=== PATIENT | female | born 1985 | race Two or more races ===

== ENCOUNTER 2022-04-29 11:32 | Inpatient (IN) | payer SELFPAY ==
--- OUTSIDE RECORDS SUMMARY | 2022-04-29 11:35 | XMS REPORT | Continuity of Care Document ---
:1985 Author Organization [facility] Address [address] [place] [address] Care Team Providers Name Role Phone Unavailable Unavailable Unavailable Problems Condition Condition Condition Status Onset Resolution Last Treating Co mments Source Name Details Category Date Date Treatment Clinician Date Uterine Uterine Problem Active [facility] leiomyoma Leiomyoma 2 da 00:00: Medical 00 Group Urinary Urinary Problem Active [place] tract Tract 2 da infectious Infectious 00:00: Me dical disease Disease 00 Group Menorrhagi Menorrhagi Problem Active [facility] a a 2 da 00:00: Medical 00 Group Allergies, Adverse Reactions, Alerts Allergy Allergy Status Severity Reaction(s) Onset Inactive Treating Comm ents Source Name Type Date Date Clinician Amoxicil Allergy Active Hives [place] krystina to [facility] Social History Smoking Status Start Date Stop Date Source Current Every Day Smoker [facility] Medications Ordered Filled Start Stop Current Ordering Indication Dosage Frequency Signature Comments Components Source Medication Medication Date Date Medication? Clinician (SIG) Name Name levothyroxi levothyroxi No levothyrox [facility] Cipro 500 Cipro 500 No 1 Q12H Cipro 500 [facility] mg tablet mg tablet mg tablet da Take 1 Take 1 Take 1 Medical tablet tablet tablet Group every 12 every 12 every 12 hours by hours by hours by oral route. oral route. oral route. ibuprofen ibuprofen No 1 TID ibuprofen [facility] 800 mg 800 mg 800 mg da tablet Take tablet Take tablet Medical 1 tablet 3 1 tablet 3 Take 1 G roup times a day times a day tablet 3 by oral by oral times a route. route. day by oral route. Vital Signs Vital Name Observation Time Observation Value Comments Source BP Diastolic 2018-11-19 00:00:00 74 mm[Hg] [facility] BP Systolic 2018-11-19 00:00:00 107 mm[Hg] [facility] Body Weight 2018-11-19 00:00:00 187 [lb_av] [facility] Procedures Procedure Date / Time Performed Performing Clinician [facility] e Delivery 2009-04-15 00:00:00 [facility] Plan of Care Planned Activity Planned Date Details Comments Source Diagnostic Test 2018-11-19 urinalysis, [facility] Pending 00:00:00 dipstick [code = Group urinalysis, dipstick] Diagnostic Test 2018-11-19 test, [facility] Pending 00:00:00 urine [code = Group test, urine] Diagnostic Test 2018-11-19 culture, urine [facility] Pending 00:00:00 [code = culture, Group urine] Encounters Start End Encounter Admission Attending Care Care Encounter Source Date/Time Date/Time Type Type Clinicians Facility Department ID 2018-11-19 2018-11-19 [facility] [place] - [id number] [place] 00:00:00 00:00:00 [facility] vanessa Causey NP: [facility] - [address] [address] , Ph. [phone] Results This patient has no known results.
[2022-04-29 12:33] LABS: Urine Blood Trace-intact (Negative); Urine Glucose Negative (Negative); Urine Protein Negative (Negative); Urine Specific Gravity 1.015 (1.005-1.030)
[2022-04-29 12:39] LABS: Absolute Lymphocytes (CBC) 1.8 K/uL (0.7-4.9); Hematocrit 24.2 % (36.0-45.0); Lymphocytes % 37.1 % (15.3-44.8); MCV 90.9 fL (80-100); MPV 6.4 fL (7.6-11.3); RBC Red Blood Cell Count 2.66 M/uL (3.86-4.86)
[2022-04-29 12:44] LABS: Urine Specific Gravity/Preg 1.015 (1.005-1.030)
[2022-04-29] MEDS ORDERED: FAMOTIDINE 20 MG/2 ML VIAL IV ONE (12:48)
[2022-04-29] MEDS ORDERED: ONDANSETRON 4 MG/2 ML VIAL ONE (12:48)
[2022-04-29] MEDS ORDERED: NA CHLORIDE 0.9% 1,000 ML ONE (12:48)
--- NOTE | 2022-04-29 12:52 | RAD REPORT ---
EXAM DESCRIPTION: US - Abdomen Exam Limited - 04/29/2022 12:42 pm CLINICAL HISTORY: abdominal pain COMPARISON: No comparisons FINDINGS: The gallbladder demonstrates no gallstones. No pericholecystic fluid or gallbladder wall t hickening. The common bile duct is normal measuring 4 mm. The liver demonstrates no findings of intrahepatic biliary dilatation. IMPRESSION: Unremarkable examination.
[2022-04-29 12:57] LABS: Albumin 3.4 g/dL (3.4-5.0); Bilirubin Total 0.3 mg/dL (0.2-1.0); Potassium 3.5 mmol/L (3.5-5.1); Protein, Total 7.6 g/dL (6.4-8.2); Troponin High Sensitivity 3.9 pg/mL (<58.9)
--- NOTE | 2022-04-29 14:03 | RAD REPORT ---
EXAM DESCRIPTION: CTAbdomen Pelvis W Contrast - 04/29/2022 1:44 pm CLINICAL HISTORY: Abdominal pain. Abdominal pain, acute, nonlocalized COMPARISON: Abdomen Exam Limited dated 04/29/2022 TECHNIQUE: Biphasic CT imaging of the abdomen and pelvis was performed with 100 ml non-ionic IV cont rast. All CT scans are performed using dose optimization technique as appropriate and may include automated exposure control or mA/KV adjustment according to patient size. FINDINGS: The lung bases are clear. The liver, spleen, pancreas, adrenal glands and kidneys are within normal limits. No bowel obstruction, free air, free fluid or abscess. The appendix is not well visualized. Signific ant retained stool throughout the colon. No evidence of significant lymphadenopathy. No suspicious bony findings. Trace pelvic free fluid. IMPRESSION: No acute intra-abdominal or pelvic finding. Moderate stool is present throughout the colon.
[2022-04-29] MEDS ORDERED: NA CHLORIDE 0.9% 500 ML ONE (14:36)
--- NOTE | 2022-04-29 16:13 | ER ---
Nurse's Notes [facility] Name: Fito Sosa Age: 36 yrs Sex: Female : 1985 Arrival Date: 04/29/2022 Time: 11:53 Bed 20 Private MD: Diagnosis: UTI/ Urinary tract infection, site not specified;Syncope;Anemia, unspecified Presentation: 04/29 12:07 Chief complaint: Patient states: chest pain for a couple of days. Coronavirus screen: [facility] Vaccine status: Patient reports receiving the 2nd dose of the covid vaccine. At this time, the client does not indicate any symptoms associated with coronavirus-19. Ebola Screen: Patient negative for fever greater than or equal to 101.5 degrees Fahrenheit, and additional compatible Ebola Virus Disease symptoms. Initial Sepsis Screen: Does the patient meet any 2 criteria? No. Patient's initial sepsis screen is negative. Does the patient have a suspected source of infection? No. Patient's initial sepsis screen is negative. Risk Assessment: Do you want to hurt yourself or someone else? Patient reports no desire to harm self or others. Onset of symptoms was April 28, 2022. 12:07 Method Of Arrival: EMS: [facility] 12:07 Acuity: RACHANA 3 [facility] Triage Assessment: 12:08 General: Appears in no apparent distress. Behavior is calm, cooperative, appropriate [facility] for age. Pain: Complains of pain in chest Pain currently is 7 out of 10 on a pain scale. GRIPS: 12:08 LMP N/A - control method [facility] Historical: - Allergies: 12:08 Amoxicillin; [facility] - Home Meds: 12:08 levothyroxine 25 mcg tab 1 tab once daily for hypothyroidism [Active]; [facility] - PMHx: 12:08 Congestive heart failure; THYROID CA; Hypothyroidism; Hypertensive disorder; [facility] - Immunization history:: Adult Immunizations up to date. - Social history:: Smoking status: Patient denies any tobacco usage or history of. - Family history:: not pertinent. - Hospitalizations: : No recent hospitalization is reported. Screenin:12 Abuse screen: Denies threats or abuse. Nutritional screening: No deficits noted. [facility] Tuberculosis screening: No symptoms or risk factors identified. Fall Risk None identified. Assessment: 12:12 Reassessment: No changes from previously documented assessment. [facility] Vital Signs: 12:07 BP 102 / 86; Pulse 62; Resp 18; Temp 98.2(TE); Pulse Ox 100% on R/A; Weight 92.99 kg; 1 Height 5 ft. 6 in. (167.64 cm); Pain 7/10; 13:20 BP 101 / 82; Pulse 62; Resp 18; Pulse Ox 100% on R/A; bh1 14:01 BP 96 / 78; Pulse 57; Resp 18; Pulse Ox 100% on R/A; bh1 14:39 BP 121 / 94; Pulse 50; Resp 18; Pulse Ox 99% on R/A; bh1 15:12 BP 113 / 91; Pulse 52; Resp 18; Pulse Ox 100% on R/A; bh1 16:04 BP 120 / 85; Pulse 72; Resp 18; Pulse Ox 100% on R/A; bh1 16:44 BP 98 / 70; Pulse 64; Resp 18; Pulse Ox 100% on R/A; 1 17:13 BP 102 / 87; Pulse 65; Resp 20; Pulse Ox 100% on R/A; bh1 19:03 BP 101 / 68; Pulse 89; Resp 18; Pulse Ox 100% on R/A; 1 12:07 Body Mass Index 33.09 (92.99 kg, 167.64 cm) [facility] ED Course: 11:53 Patient arrived in ED. aa5 11:56 Mike Mcknight MD is Attending Physician. rn 12:00 Kathleen Boyd, ANGELINE is Primary Nurse. [facility] 12:08 Triage completed. [facility] 12:08 Arm band placed on left wrist. EKG completed in triage. Results shown to MD. [facility] 12:12 No apparent distress. Resting quietly. Awaiting lab results, Awaiting radiology results.[facility] 12:12 Patient has correct armband on for positive identification. 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 Pulse 1 ox on. NIBP on. Door closed. Noise minimized. Warm blanket given. Pillow given. Head of bed elevated. 12:12 No provider procedures requiring assistance completed. Inserted saline lock: 20 gauge bh1 in right antecubital area, using aseptic technique. Blood collected. 12:34 CBC with Diff Sent. 1 12:34 CMP Sent. 1 12:34 Lipase Sent. [facility] 12:34 SARS-COV-2 RT PCR (Document "Date of Onset" if Symptomatic) Sent. 1 12:34 Troponin High Sensitivity Sent. bh1 12:44 Abdomen Limited US In Process Unspecified. EDMS 13:20 No apparent distress. Resting quietly. Awaiting lab results, Awaiting radiology results.1 13:25 EKG done, by ED staff. tm3 13:[address] via stretcher. bh1 13:46 CT Abd/Pelvis - IV Contrast Only In Process Unspecified. EDMS 14:39 No apparent distress. Resting quietly. Awaiting lab results, Awaiting radiology bh1 results. Awaiting ED provider evaluation, Awaiting re-evaluation by ER provider. 15:11 Assisted to bathroom. bh1 15:12 No apparent distress. Resting quietly. Awaiting ED provider evaluation. bh1 15:24 Diet: Patient given a regular meal tray. Patient given juice. Patient given water. bh1 Tolerated well. 16:04 No apparent distress. Awaiting disposition. 1 16:11 Calin Bhagat MD is Hospitalizing Provider. rn 16:44 No apparent distress. Resting quietly. Awaiting bed assignment. bh1 17:13 No apparent distress. Resting quietly. Awaiting bed assignment. 1 19:04 Report given to MARILYNN. 1 19:09 Primary Nurse role handed off by Kathleen Boyd, ANGELINE 3 19:09 Marilynn Young, RN is Primary Nurse. kd3 21:10 Patient admitted, IV remains in place. kd3 Administered Medications: 12:50 Drug: NS 0.9% 1000 ml Route: IV; Rate: 1 bolus; Site: right antecubital; [facility] 13:34 Follow up: IV Status: Infusion continued; IV Intake: 1000ml [facility] 12:50 Drug: Pepcid (famotidine) 20 mg Route: IVP; Site: right antecubital; 1 13:33 Follow up: Response: No adverse reaction [facility] 12:50 Drug: Zofran (Ondansetron) 4 mg Route: IVP; Site: right antecubital; 1 13:33 Follow up: Response: No adverse reaction [facility] 14:25 Drug: NS 0.9% 500 ml Route: IV; Rate: bolus; Site: right antecubital; 1 15:11 Follow up: IV Status: Completed infusion; IV Intake: 500ml [facility] 19:31 Drug: Rocephin (cefTRIAXone) 1 grams Route: IV; Rate: calculated rate; Site: right 3 antecubital; 19:31 Follow up: IV Status: Completed infusion kd3 21:10 Follow up: Response: No adverse reaction 3 19:31 Drug: HYDROcodone-acetaminophen 5 mg-325 mg 1 tabs Route: PO; 3 21:10 Follow up: Response: No adverse reaction [facility] Medication: 12:12 VIS not applicable for this client. [facility] Point of Care Testing: Guaiac: 14:08 Stool Guaiac: Negative; Stool Hemoccult Control: Pass; recruitment intern: 13:34 IV: 1000ml; Total: 1000ml. 1 15:11 IV: 500ml; Total: 1500ml. [facility] Outcome: 16:12 Decision to Hospitalize by Provider. rn 21:09 Admitted to Med/surg kd3 21:09 Condition: stable 21:09 Discharge instructions given to patient, Instructed on the need for admit, Demonstrated understanding of instructions, follow-up care. 21:10 Patient left the ED. 3 Signatures: Dispatcher [employer] EDMS Carson Loi tm3 Mike Mcknight MD MD rn Calderon, Audri RN RN [email or web address] Marilynn Young RN RN kd3 Kathleen Boyd RN RN 1 Corrections: (The following items were deleted from the chart) 12:12 12:08 LMP N/A - Post-menopause [facility]1
--- NOTE | 2022-04-29 16:13 | EDPHYS ---
Physician Documentation [facility] Name: Fito Sosa Age: 36 yrs Sex: Female : 1985 Arrival Date: 04/29/2022 Time: 11:53 Bed 20 Private MD: ED Physician Mike Mcknight HPI: 04/29 16:04 This 36 yrs old Female presents to ER via EMS with complaints of syncope, vomiting. rn 16:05 The patient presents to the emergency department with nausea, vomiting, abdominal pain, rn of the epigastric area. Onset: The symptoms/episode began/occurred today. Possible causes: unknown. The symptoms are aggravated by nothing. The symptoms are alleviated by nothing. Associated signs and symptoms: Pertinent positives: abdominal pain, nausea, vomiting, Pertinent negatives: fever, GI bleeding. Severity of symptoms: At their worst the symptoms were moderate in the emergency department the symptoms are unchanged. The patient has not experienced similar symptoms in the past. The patient has not recently seen a physician. Pt reports nausea/vomiting, lightheaded, dizzy. States passed out 2-3 times when walking and standing up. Denies blood in emesis. No blood in stool or dark stool. No fever. No sick contacts. Reports chest pain with exertion. From [place], here visiting, abandoned by boyfriend, no where to go. . 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 - Social history:: Smoking status: Patient denies any tobacco usage or history of. - Family history:: not pertinent. - Hospitalizations: : No recent hospitalization is reported. ROS: 16:05 Constitutional: Negative for fever, chills, and weight loss, Eyes: Negative for injury, rn pain, redness, and discharge, ENT: Negative for injury, pain, and discharge, Neck: Negative for injury, pain, and swelling, Cardiovascular: Negative for palpitations, and edema, Respiratory: Negative for shortness of breath, cough, wheezing, and pleuritic chest pain, Abdomen/GI: Negative for constipation Back: Negative for injury and pain, : Negative for injury, bleeding, discharge, and swelling, MS/Extremity: Negative for injury and deformity, Skin: Negative for injury, rash, and discoloration, Neuro: Negative for headache, numbness, tingling, and seizure. Exam: 13:48 ECG was reviewed by the Attending Physician. rn 16:05 Constitutional: This is a well developed, well nourished patient who is awake, alert, rn and in no acute distress. Head/Face: Normocephalic, atraumatic. Eyes: Periorbital areas with no swelling, redness, or edema. ENT: dry MM Cardiovascular: Regular rate and rhythm. No pulse deficits. Respiratory: No increased work of breathing, no retractions or nasal flaring. Abdomen/GI: soft, mild epigastric tenderness, no rebound Skin: Warm, dry MS/ Extremity: Pulses equal, no cyanosis. Neuro: Awake and alert, GCS 15 Vital Signs: 12:07 BP 102 / 86; Pulse 62; Resp 18; Temp 98.2(TE); Pulse Ox 100% on R/A; Weight 92.99 kg; 1 Height 5 ft. 6 in. (167.64 cm); Pain 7/10; 13:20 BP 101 / 82; Pulse 62; Resp 18; Pulse Ox 100% on R/A; bh1 14:01 BP 96 / 78; Pulse 57; Resp 18; Pulse Ox 100% on R/A; bh1 14:39 BP 121 / 94; Pulse 50; Resp 18; Pulse Ox 99% on R/A; bh1 15:12 BP 113 / 91; Pulse 52; Resp 18; Pulse Ox 100% on R/A; bh1 16:04 BP 120 / 85; Pulse 72; Resp 18; Pulse Ox 100% on R/A; bh1 16:44 BP 98 / 70; Pulse 64; Resp 18; Pulse Ox 100% on R/A; bh1 17:13 BP 102 / 87; Pulse 65; Resp 20; Pulse Ox 100% on R/A; bh1 19:03 BP 101 / 68; Pulse 89; Resp 18; Pulse Ox 100% on R/A; bh1 12:07 Body Mass Index 33.09 (92.99 kg, 167.64 cm) [facility] MDM: 11:56 Patient medically screened. rn 14:08 ED course: Pt with hemoglobin 8.0, pt reports hx of anemia, has had blood transfusions rn in past, has been scoped and told "don't know where blood loss is from". Reports heavy menses. Denies hematemesis. . 16:05 Differential diagnosis: Nonspecific abd pain, gastritis, cholecystitis, pancreatitis, rn appendicitis, diverticulitis, viral gastroenteritis, gastroenteritis. Data reviewed: vital signs, nurses notes, lab test result(s), radiologic studies, CT scan, and as a result, I will admit patient. Counseling: I had a detailed discussion with the patient and/or guardian regarding: the historical points, exam findings, and any diagnostic results supporting the discharge/admit diagnosis, lab results, radiology results, the need for further work-up and treatment in the hospital. 16:11 Admission orders: after a detailed discussion of the patient's condition and case, the software development intern orders are written by me. 04/29 12:07 Order name: CBC with Diff; Complete Time: 13:13 rn 04/29 12:07 Order name: CMP; Complete Time: 13:13 rn 04/29 12:07 Order name: Lipase; Complete Time: 13:13 rn 04/29 12:07 Order name: Troponin High Sensitivity; Complete Time: 13:13 rn 04/29 12:07 Order name: SARS-COV-2 RT PCR (Document "Date of Onset" if Symptomatic); Complete Time: rn 15:34 04/29 12:33 Order name: Urine --Ancillary (enter results); Complete Time: 13:13 bd 04/29 12:07 Order name: Abdomen Limited US; Complete Time: 13:13 rn 04/29 12:07 Order name: CT Abd/Pelvis - IV Contrast Only; Complete Time: 14:04 rn 04/29 12:33 Order name: Urine Dipstick-Ancillary; Complete Time: 13:13 EDMS 04/29 19:07 Order name: BNP la1 04/29 19:08 Order name: Urine Microscopic Only la1 04/29 12:07 Order name: IV Saline Lock; Complete Time: 12:14 rn 04/29 12:07 Order name: Labs collected and sent; Complete Time: 12:34 rn 04/29 12:07 Order name: Urine Dipstick-Ancillary (obtain specimen); Complete Time: 12:34 rn 04/29 12:07 Order name: Urine Test (obtain specimen); Complete Time: 12:34 rn 04/29 12:07 Order name: EKG; Complete Time: 12:08 rn 04/29 12:07 Order name: EKG - Nurse/Tech; Complete Time: 13:33 rn EC:48 Rate is 56 beats/min. Rhythm is regular. QRS Devon is Normal. ID interval is normal. QRS rn interval is normal. QT interval is normal. No Q waves. T waves are Normal. No ST changes noted. Clinical impression: Sinus bradycardia. Interpreted by me. Reviewed by me. Administered Medications: 12:50 Drug: NS 0.9% 1000 ml Route: IV; Rate: 1 bolus; Site: right antecubital; 1 13:34 Follow up: IV Status: Infusion continued; IV Intake: 1000ml bh1 12:50 Drug: Pepcid (famotidine) 20 mg Route: IVP; Site: right antecubital; bh1 13:33 Follow up: Response: No adverse reaction 1 12:50 Drug: Zofran (Ondansetron) 4 mg Route: IVP; Site: right antecubital; bh1 13:33 Follow up: Response: No adverse reaction 1 14:25 Drug: NS 0.9% 500 ml Route: IV; Rate: bolus; Site: right antecubital; bh1 15:11 Follow up: IV Status: Completed infusion; IV Intake: 500ml 1 19:31 Drug: Rocephin (cefTRIAXone) 1 grams Route: IV; Rate: calculated rate; Site: right kd3 antecubital; 19:31 Follow up: IV Status: Completed infusion kd3 21:10 Follow up: Response: No adverse reaction kd3 19:31 Drug: HYDROcodone-acetaminophen 5 mg-325 mg 1 tabs Route: PO; kd3 21:10 Follow up: Response: No adverse reaction kd3 Point of Care Testing: Guaiac: 14:08 Stool Guaiac: Negative; Stool Hemoccult Control: Pass; rn Disposition Summary: 04/29/22 16:12 Hospitalization Ordered Hospitalization Status: Observation rn Provider: Calin Bhagat rn Location: Telemetry/MedSur (observation) rn Condition: Stable rn Problem: new rn Symptoms: have improved rn Bed/Room Type: Standard rn Room Assignment: 207(04/29/22 19:31) cg Diagnosis - UTI/ Urinary tract infection, site not specified rn - Syncope rn - Anemia, unspecified immigration attorney Instructions: - Discharge Summary Sheet aa5 Forms: - Medication Reconciliation Form rn - SBAR form rn Signatures: Dispatcher [employer] Mike Almazan MD MD rn Attema, Lee, SENIOR DIGITAL DESIGNER-C SENIOR DIGITAL DESIGNER-[facility] Lisa Robles, RN RN Marilynn Flood, RN RN 3 Kathleen Boyd RN RN 1 Corrections: (The following items were deleted from the chart) 19:31 16:12 rn cg
[2022-04-29] MEDS ORDERED: CEFTRIAXONE 1000 MG/VIAL ONE (19:31)
[2022-04-29] MEDS ORDERED: HYDROCODONE/APAP 5/325 MG TAB ONE (19:31)
--- NOTE | 2022-04-29 19:49 | P.HP ---
Certification for Inpatient Patient admitted to: Observation With expected LOS: <2 Midnights Patient will require the following post-hospital care: None Practitioner: I am a practitioner with admitting privileges, knowledge of patient current condition, hospital course, and medical plan of care. Services: Services provided to patient in accordance with Admission requirements found in Title 42 Section 412.3 of the Code of Federal Regulations <Dirk Hardin - Last Filed: 04/29/22 19:42> Patient History Date of Service: 04/29/22 Reason for admission: Syncope, chest pain, anemia History of Present Illness: 36-year-old female with history of CHFunknown EF, hypertension, hypothyroidism, chronic anemia presents to the emergency department for multiple episode of syncope, chest pain. She reports that she has been feeling very dizzy/weak when she stands up or exerts herself had 2 episodes of syncope today. She also complains of "burning" chest pain. She reports she was evaluated at the hospital in [place] in September for anemia, they thought she possibly had thyroid cancer and may be a mass in her appendix there put in doing surgery but she had cardiac work-up and they told her that she had an enlarged heart and was not a candidate for surgery, they also reportedly told her that she would need a pacemaker/defibrillator after learning that she became upset and left AGAINST MEDICAL ADVICE has not seek further care anywhere else for any of the above problems. She has been without any of her medications at home she does not have the resources to obtain them she reports that medication she is supposed to be on his levothyroxine. She has been anemic in the past requiring blood transfusion she reports embonate unable to find out why she is anemic she does report heavy menses only lasting 2 to 3 days denies any GI bleeding FOBT negative in the ER stool soft and brown has normocytic anemia. Patient also with urinary tract infection reports he does have history of urinary tract infections. ED rfp writer wishes to admit for further evaluation and management of syncope, chest pain, UTI. - Past Medical/Surgical History Diabetic: No -: CHFunknown EF -: Hypothyroidism -: Hypertension -: Psychosocial/ Personal History: Patient currently homeless, living in a hotel at this time has 4 disabled children that she cares for. - Family History Mother -: Cancer Sister -: Cancer - Social History Smoking Status: Former smoker Alcohol use: No CD- Drugs: No Caffeine use: Yes Place of Residence: Home <Dirk Hardin - Last Filed: 04/29/22 19:42> Date of Service: 04/30/22 <[email or web address] oneil - Last Filed: 04/30/22 13:38> Review of Systems 10-point ROS is otherwise unremarkable Respiratory: Shortness of Breath, SOB with Excertion Cardiovascular: Chest Pain, Light Headedness, As per HPI Gastrointestinal: Nausea, Vomiting Genitourinary: Frequency <Dirk Hardin - Last Filed: 04/29/22 19:42> Physical Examination - Physical Exam General: Alert, In no apparent distress HEENT: Atraumatic, PERRLA, Other (Mucous membranes pale), EOMI, Sclerae nonicteric Neck: Supple, 2+ carotid pulse no bruit, No LAD, Without JVD or thyroid abnormality Respiratory: Clear to auscultation bilaterally, Normal air movement Cardiovascular: Regular rate/rhythm, Normal S1 S2 Capillary refill: <2 Seconds Gastrointestinal: Normal bowel sounds, No tenderness Musculoskeletal: No tenderness Integumentary: No rashes Neurological: Normal speech, Normal strength at 5/5 x4 extr, Normal tone, Normal affect - Studies Laboratory Data (last 24 hrs) 04/29/22 12:27: Sodium 139, Potassium 3.5, BUN 5 L, Creatinine 1.08, Glucose 80, Total Bilirubin 0.3, AST 58 H, ALT 28, Alkaline Phosphatase 33 L, Lipase 114 04/29/22 12:27: WBC 4.8, Hgb 8.0 L, Hct 24.2 L, Plt Count 376 <Dirk Hardin - Last Filed: 04/29/22 19:42> Assessment and Plan - Plan Assessment: Chest pain rule out ACS Syncope Normocytic anemia Chronic CHFunknown EF Hypothyroidism Hypertension UTI Plan: Chest pain rule out ACS: Pain described as burning suspect this is related to GERD or possibly her anemia. Will provide medications for GERD, trend troponins, monitor on telemetry, will also consult cardiology given chest pain as well as the fact that she reported she had been told she had cardiomegaly and was in need of a pacemaker/defibrillator during her recent hospitalization in September. We will obtain records from [facility] from her hospitalization in September to confirm. Syncope: Possibly related to her anemia, will obtain orthostatic vital signs as well as a D-dimer given the chest pain in the setting of syncope she had a CT scan with contrast today if D-dimer is positive we will likely need CT PE protocol tomorrow. Her symptoms are associated with change in position suspect orthostasis/anemia contributing. Normocytic anemia: Unknown etiology, patient poor historian she reports some possible history of undiagnosed thyroid cancer/mass on her appendix. She reports she has received blood transfusions before denies ever having a colonoscopy does report heavy menses lasting few days last 2 to 3 months ago. Will obtain anemia work-up. FOBT negative in the ER stool was soft and brown per ED provider. Transfuse as necessary. Chronic CHFunknown EF: Patient again reports that she was told she had cardiomegaly and would likely need pacemaker/defibrillator she left AMA from the hospital in September at [place] at that time per patient. Will obtain records from [facility] she is unsure if she is ever had an echocardiogram for. Consult cardiology here as well. Does not appear to be overloaded at this time. Hypothyroidism: Check thyroid panel, restart home dose levothyroxine. Hypertension: Monitor blood pressure throughout hospitalization restart medications as appropriate. Patient unsure what medication she supposed to be on at home. UTI: Patient reports history of urinary tract infections will provide with Rocephin at this time, get urine culture. She does have some urinary frequency. DVT PPX: Lovenox Code status: Full Discharge Plan: Home Plan to discharge in: 24 Hours - Advance Directives Does patient have a Living Will: No Does patient have a Durable POA for Healthcare: No - Code Status/Comfort Care Code Status Assessed: Yes (Full code) Critical Care: No Time Spent Managing Pts Care (In Minutes): 70 <Dirk Hardin - Last Filed: 04/29/22 19:42> Physician Review: Patient Assessed, Agree with Above Assessment and Plan <Calin Bhagat - Last Filed: 04/30/22 13:38>
[2022-04-29] MEDS ORDERED: ONDANSETRON 4 MG/2 ML VIAL IV PRN (21:21)
[2022-04-29] MEDS: FAMOTIDINE 20 MG TAB PO SCH (21:44)
[2022-04-29] MEDS ORDERED: Ringers Lactate 500 ML IV ONE (22:41)
[2022-04-29 22:47] LABS: Urine RBC <5 /HPF (None Seen)
[2022-04-29 22:48] LABS: Urine Bacteria 20-50 /HPF (<20); Urine Trichomonas Present /HPF (None Seen)
[2022-04-29] MEDS: MELATONIN 5 MG TABLET PO PRN (23:30)
[2022-04-29] MEDS: ACETAMINOPHEN 500 MG TAB PO PRN (23:31)
[2022-04-30 01:46] VITALS: BMI 33.0
[2022-04-30 04:20] LABS: Absolute Lymphocytes (CBC) 1.6 K/uL (0.7-4.9); Hematocrit 23.5 % (36.0-45.0); Lymphocytes % 38.5 % (15.3-44.8); MCV 89.8 fL (80-100); MPV 6.8 fL (7.6-11.3); RBC Red Blood Cell Count 2.61 M/uL (3.86-4.86)
[2022-04-30 04:51] LABS: Albumin 3.4 g/dL (3.4-5.0); Bilirubin Total 0.2 mg/dL (0.2-1.0); Ferritin 4.7 ng/mL (8-388); Potassium 3.4 mmol/L (3.5-5.1); Protein, Total 7.6 g/dL (6.4-8.2); Troponin High Sensitivity 5.7 pg/mL (<58.9)
[2022-04-30 04:58] LABS: Thyroid Stimulating Hormone 98.4 uIU/mL (0.360-3.740)
[2022-04-30] MEDS: LEVOTHYROXINE SOD 0.1 MG TAB PO SCH (05:58)
[2022-04-30] MEDS ORDERED: POTASSIUM 25 MEQ EFFERV TAB PO ONE (06:00)
[2022-04-30] MEDS: ENOXAPARIN 40 MG/0.4 ML SQ SCH (09:33)
[2022-04-30] MEDS: metroNIDAZOLE 500 MG TABLET PO SCH ×2 (09:33→20:01)
[2022-04-30] MEDS: FAMOTIDINE 20 MG TAB PO SCH ×2 (09:33→20:02)
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
--- NOTE | 2022-04-30 13:21 | RAD REPORT ---
EXAM DESCRIPTION: CT - Head Brain Wo Cont - 04/30/2022 1:08 pm CLINICAL HISTORY: syncope COMPARISON: <Comparisons> TECHNIQUE: All CT scans are performed using dose optimization technique as appropriate and may inclu de automated exposure control or mA/KV adjustment according to patient size. FINDINGS: No intracranial hemorrhage, hydrocephalus or extra-axial fluid collection.No areas of brai n edema or evidence of midline shift. The paranasal sinuses and mastoids are clear. The calvarium is intact. IMPRESSION: No acute intracranial abnormality.
--- NOTE | 2022-04-30 14:05 | RAD REPORT ---
EXAM DESCRIPTION: RAD - Chest Single View - 04/30/2022 1:53 pm CLINICAL HISTORY: chest pain COMPARISON: No comparisons FINDINGS: Lines: None. Lungs: No evidence of edema or pneumonia. Pleural: No significant pleural effusions or pneumothorax. Cardiac: The heart size is within normal limits. Bones: No acute fractures. Other: IMPRESSION: No acute cardiopulmonary disease.
--- NOTE | 2022-04-30 14:43 | RAD REPORT ---
EXAM DESCRIPTION: US - CP - 04/30/2022 2:25 pm CLINICAL HISTORY: thyroid ultrasound COMPARISON: Thyroid Para Parotid Gland dated 04/30/2022 TECHNIQUE: Real-time sonographic evaluation of both carotid systems was performed. Doppler interroga tion was performed with waveform tracing bilaterally. FINDINGS: Normal high resistance waveforms are noted in both external carotid arteries. The common c arotid arteries and internal carotid arteries show normal low resistance waveforms. No significant plaque formation is seen. Peak systolic and end diastolic velocity values and the ICA/ CCA ratios are in the non-hemodynamically significant range. Antegrade flow seen in both vertebral arteries. IMPRESSION: No significant atherosclerotic changes noted. No evidence of a hemodynamically significant stenosis.
--- NOTE | 2022-04-30 14:50 | RAD REPORT ---
EXAM DESCRIPTION: US - Thyroid Para Parotid Gland - 04/30/2022 2:25 pm CLINICAL HISTORY: thyroid ultrasound COMPARISON: No comparisons FINDINGS: Heterogeneous thyroid which is small in volume. The right lobe of the thyroid measures 3.7 x 1 x 1 cm with volume of 1.9 cc. The left lobe of the thyroid measures 3 x 0.7 x 1 cm with volume o f 1.2 cc. The isthmus measures 2 millimeters . 6 mm x 5 mm hypoechoic solid lesion in the right lobe of the thyroid is noted. There is also a 4 mm nodule in the isthmus. Using TI-RADS criteria, neither of these nodules require additional follow-up. IMPRESSION: Small heterogeneous thyroid could be secondary to thyroiditis. Small thyroid nodules whi ch do not require follow-up using TI-RADS criteria.
[2022-04-30] MEDS: CEFTRIAXONE 1,000 MG in NA CHLORIDE 0.9% 50 ML IVPB SCH (17:04)
[2022-04-30] MEDS: ACETAMINOPHEN 500 MG TAB PO PRN (20:01)
[2022-04-30] MEDS: MELATONIN 5 MG TABLET PO PRN (20:02)
[2022-04-30] MEDS: FERROUS SULFATE 325 MG TAB PO SCH (20:02)
[2022-04-30] MEDS: ATORVASTATIN 40 MG TAB PO SCH (20:02)
[2022-05-01] MEDS: LEVOTHYROXINE SOD 0.1 MG TAB PO SCH (05:57)
[2022-05-01] MEDS: ACETAMINOPHEN 500 MG TAB PO PRN (05:57)
[2022-05-01 07:11] LABS: ALT/SGPT 21 U/L (12-78); AST/SGOT 44 U/L (15-37); Albumin 3.3 g/dL (3.4-5.0); Alkaline Phosphatase 33 U/L (45-117); BUN Blood Urea Nitrogen 5 mg/dL (7-18); Bicarbonate 27 mmol/L (21-32); Bilirubin Total 0.1 mg/dL (0.2-1.0); Glomerular Filtration Rate 71 ml/min (=/>90); Glucose Level 83 mg/dL (74-106); Potassium 3.8 mmol/L (3.5-5.1); Protein, Total 7.2 g/dL (6.4-8.2); Sodium Level 136 mmol/L (136-145)
[2022-05-01 07:12] LABS: T3 Free < 0.50 pg/mL (2.18-3.98)
[2022-05-01 07:30] LABS: Hematocrit 22.2 % (36.0-45.0); Lymphocytes % 38.9 % (15.3-44.8); MCV 90.6 fL (80-100); MPV 6.7 fL (7.6-11.3); RBC Red Blood Cell Count 2.45 M/uL (3.86-4.86)
[2022-05-01] MEDS ORDERED: POTASSIUM CL SA 10 MEQ TAB PO ONE (09:00)
[2022-05-01] MEDS: FERROUS SULFATE 325 MG TAB PO SCH (09:02)
[2022-05-01] MEDS: FAMOTIDINE 20 MG TAB PO SCH ×2 (09:02→20:17)
[2022-05-01] MEDS: ENOXAPARIN 40 MG/0.4 ML SQ SCH (09:02)
[2022-05-01] MEDS: metroNIDAZOLE 500 MG TABLET PO SCH ×2 (09:03→20:16)
--- NOTE | 2022-05-01 09:38 | CON ---
Date of Consultation: 04/30/2022 Reason For Consultation: Atypical chest pain. History Of Present Illness: Ms. Sosa is a 36-year-old black woman who normally lives at [place] a nd was here visiting. She came into the hospital with mid-epigastric abdominal pain, syncope, vomiti ng. So far, has had a CT of her abdomen and pelvis that was negative. She stated that she has a his tory of cardiomegaly, has a history of thyroid cancer, hypertension, and hypothyroidism. Symptoms jane ve been going on for about 4 to 5 hours before she came into the hospital. Denied any fever or chill s. Denied any palpitation. Denied any pedal edema or any PND or orthopnea. Allergies: INCLUDE AMOXICILLIN. Past Medical History: As stated above. Review of Systems: Negative. Social History: Positive for anxiety and stress over a recent break-up. Medications: At home include Synthroid. Family History: Noncontributory. Physical Examination: General: Ms. Sosa appeared to be pretty anxious. Her vital signs however were stable. She was afebrile. She was in a sinus rhythm. She was complaining of mid epigastric sharp pain that has been persistent since she came to the hospital. HEENT: Exam is negative. Neck: Supple with no bruit. Chest: Clear. Cardiac: Exam revealed a regular rhythm and rate with no murmurs, gallops, or rubs. Abdomen: Obese but benign. Extremities: Revealed a trace edema. Diagnostic Data: Include a hemoglobin of 7.8, TSH was 98, cholesterol 351, triglycerides 187, her LD L is 261. Urinalysis may have shown a UTI. Impression And Plan: Atypical chest pain, most likely gastroesophageal in nature. I think an echoca rdiogram is reasonable. Ms. Sosa is only 36. She is at low risk for coronary artery disease, bu t I think an echocardiogram would be reasonable if she stays in the hospital. She does have a histor y of cardiomegaly would be nice to rule out congestive heart failure. I believe her main problem is her anemia. She has had transfusion in the past. I am not so sure how much workup she jane s had. Her TSH is 98. I am not so sure if she is taking her thyroid medicine. She definitely needs to be on statins. She has mixed severe dyslipidemia. Ms. Sosa is hemodynamically stable. I fe el comfortable with her going home whenever it is okay with Dr. Bhagat, and she needs to follow up wit h her primary care physician in [place]. CÉSAR/TAYA Voice ID: [id number] Report ID: [id number]
[2022-05-01] MEDS ORDERED: NA CHLORIDE 0.9% 500 ML ONE (10:41)
[2022-05-01] MEDS: Ringers Lactate 1,000 ML IV SCH (13:59)
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
[2022-05-01] MEDS: CEFTRIAXONE 1,000 MG in NA CHLORIDE 0.9% 50 ML IVPB SCH (17:17)
[2022-05-01] MEDS: ATORVASTATIN 40 MG TAB PO SCH (20:17)
[2022-05-02 00:50] LABS: RPR (Rapid Plasma Reagin) REACTIVE (NON-REACT)
[2022-05-02] MEDS: Ringers Lactate 1,000 ML IV SCH ×3 (03:20→17:27)
[2022-05-02] MEDS: ACETAMINOPHEN 500 MG TAB PO PRN (03:23)
[2022-05-02] MEDS: LEVOTHYROXINE SOD 0.1 MG TAB PO SCH (06:00)
[2022-05-02 06:07] LABS: Absolute Lymphocytes (CBC) 1.5 K/uL (0.7-4.9); Hematocrit 21.5 % (36.0-45.0); MCV 88.8 fL (80-100); MPV 6.5 fL (7.6-11.3); RBC Red Blood Cell Count 2.43 M/uL (3.86-4.86)
[2022-05-02 06:20] LABS: Albumin 3.2 g/dL (3.4-5.0); Bilirubin Total 0.2 mg/dL (0.2-1.0); Potassium 4.2 mmol/L (3.5-5.1)
[2022-05-02] MEDS: metroNIDAZOLE 500 MG TABLET PO SCH ×2 (07:58→20:44)
[2022-05-02] MEDS: ENOXAPARIN 40 MG/0.4 ML SQ SCH (07:58)
[2022-05-02] MEDS: FERROUS SULFATE 325 MG TAB PO SCH (07:58)
[2022-05-02] MEDS: FAMOTIDINE 20 MG TAB PO SCH ×2 (09:00→20:45)
--- NOTE | 2022-05-02 09:28 | EKG ---
Test Date: 2022-05-01 Test Time: 14:05:36 Regulator Tester: ROSALBA Gaston MEASUREMENT RESULTS: Intervals: Rate: 69 DE: 190 QRSD: 90 QT: 338 QTc: 362 [place]: P: 71 DE: 190 QRS: 81 T: -23 INTERPRETIVE STATEMENTS: Normal sinus rhythm Low voltage QRS Cannot rule out Anterior infarct, age undetermined Abnormal ECG No previous ECG available for comparison Electronically Signed On 05-02-22 09:24:53 CDT by Jenaro Alcala
--- NOTE | 2022-05-02 09:28 | EKG ---
Test Date: 2022-05-01 Test Time: 14:06:43 Field Instructor: ROSALBA Gaston MEASUREMENT RESULTS: Intervals: Rate: 66 ID: [id number] QRSD: 82 QT: 598 QTc: 626 [place]: P: 51 ID: [id number] QRS: 93 T: 125 INTERPRETIVE STATEMENTS: Normal sinus rhythm Rightward axis Low voltage QRS Septal infarct, age undetermined Prolonged QT Abnormal ECG Compared to ECG 05/01/2022 14:05:36 Right-axis deviation now present Prolonged QT interval now present Myocardial infarct finding still present Electronically Signed On 05-02-22 09:24:52 CDT by Jenaro Alcala
--- NOTE | 2022-05-02 09:32 | EKG ---
Test Date: 2022-04-29 Test Time: 13:25:53 Gallery Assistant: TM MEASUREMENT RESULTS: Intervals: Rate: 56 OH: 170 QRSD: 78 QT: 430 QTc: 414 [place]: P: 67 OH: 170 QRS: 87 T: 113 INTERPRETIVE STATEMENTS: Sinus bradycardia Low voltage QRS Nonspecific ST and T wave abnormality Abnormal ECG No previous ECG available for comparison Electronically Signed On 05-02-22 09:25:21 CDT by Jenaro Alcala
--- NOTE | 2022-05-02 09:44 | ECHO ---
HEIGHT: 5 ft 6 in WEIGHT: 205 lb 0 oz DATE OF STUDY: 05/02/[address]: Dirk Hardin NP 2-DIMENSIONAL: YES M.MODE: YES DOPPLER: YES COLOR FLOW: YES TDS: PORTABLE: DEFINITY: BUBBLE STUDY: DIAGNOSIS: CHEST PAIN CARDIAC HISTORY: CATHERIZATION: SURGERY: PROSTHETIC VALVE: PACEMAKER: MEASUREMENTS (cm) DIASTOLIC (NORMALS) SYSTOLIC (NORMALS) IVSd 1.4 (0.6-1.2) LA Diam 2.8 (1.9-4.0) LVEF 74% LVIDd 3.8 (3.5-5.7) LVIDs 2.2 (2.0-3.5) %FS 42% LVPWd 1.4 (0.6-1.2) Ao Diam 3.0 (2.0-3.7) 2 DIMENSIONAL ASSESSMENT: RIGHT ATRIUM: NORMAL LEFT ATRIUM: NORMAL RIGHT VENTRICLE: NORMAL LEFT VENTRICLE: LEFT VENTRICULAR HYPERTROPHY TRICUSPID VALVE: NORMAL MITRAL VALVE: NORMAL PULMONIC VALVE: NORMAL AORTIC VALVE: NORMAL PERICARDIAL EFFUSION: NONE AORTIC ROOT: NORMAL LEFT VENTRICULAR WALL MOTION: NORMAL EJECTION FRACTION. MILD DIASTOLIC DYSFUNCTION. DOPPLER/COLOR FLOW: DECREASED LEFT VENTRICULAR COMPLIANCE. COMMENTS: LEFT VENTRICULAR COMPLIANCE - CONCENTRIC - MODERATE. GRADE I DIASTOLIC DYSFUNCTION. EJECTION FRACTION 74%. TECHNOLOGIST: CARMELLA ROMANO
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
--- NOTE | 2022-05-02 15:03 | P.CNS ---
Date of Consult: 05/02/22 Chief Complaint: Syncope, chest pain, anemia History of Present Illness: Is a 36-year-old female who states she has a past medical history of hypertension, congestive heart failure with unknown ejection fraction, hypothyroidism, chronic anemia, and thyroid cancer who presented to the emergency department secondary to multiple episodes of syncope and chest pain. There is no documented history of that the patient has any past medical history of thyroid cancer, TSH elevated however thyroid ultrasound negative for nodule/masses. Did show signs concerning for thyroiditis. Echocardiogram demonstrated normal ejection fraction. Per chart review, patient was evaluated at [facility] in September for anemia and after cardiac work-up instructed her that she had an enlarged heart and would need a pacemaker/defibrillator. After this, according to the patient she left AGAINST MEDICAL ADVICE. Urine analysis positive for nitrites, leuk esterase, and bacteria, and trichomonas. Patient empirically started on Rocephin and Flagyl. Urine culture showed mixed ashley. RPR reactive, titer 121. FTAABS pending. HIV AB/AG pending, gonorrhea pending. Patient denies history of sexually transmitted infections. Currently reports diffuse abdominal tenderness and bloating. Denies nausea /vomiting/shortness of breath/chest pain. P Allergies amoxicillin Allergy (Verified 04/29/22 21:20) Hives/Rash Home Medications: Levothyroxine Sodium [Synthroid] 100 mcg PO DAILY 04/29/22 - Past Medical/Surgical History Diabetic: No -: CHFunknown EF -: Hypothyroidism -: Hypertension -: Psychosocial/ Personal History: Patient currently homeless, living in a hotel at this time has 4 disabled children that she cares for. - Family History Mother Medical History: Cancer Sister Medical History: Cancer - Social History Alcohol use: Yes CD- Drugs: No Caffeine use: Yes Place of Residence: Home Review of Systems 10-point ROS is otherwise unremarkable Physical Examination Temp Pulse Resp BP Pulse Ox 97.0 F 76 14 86/60 L 95 05/02/22 14:48 05/02/22 14:48 05/02/22 14:48 05/02/22 14:48 05/02/22 14:48 General: Alert, In no apparent distress HEENT: Atraumatic Respiratory: Clear to auscultation bilaterally, Normal air movement Cardiovascular: Normal pulses, Regular rate/rhythm Gastrointestinal: Normal bowel sounds, Soft and benign Musculoskeletal: No clubbing, No swelling Integumentary: Other (Vitiligo) Conclusions/Impression: Antibiotics Flagyl: 04/30current Rocephin: 04/30current Trichomonas vaginalis -Continue Flagyl Advised patient that her partner also needs to be treated Syphilis rule out RPR reactive, RPR titer 1:1 FTAABS pending Anemia Continue to monitor H&H Hypotension Medical management per primary team Plan of care discussed with Dr. Fraire Thank you for consultation
[2022-05-02] MEDS: ESCITALOPRAM 20 MG TAB PO SCH (15:17)
[2022-05-02] MEDS: CEFTRIAXONE 1,000 MG in NA CHLORIDE 0.9% 50 ML IVPB SCH (17:27)
[2022-05-02] MEDS: MELATONIN 5 MG TABLET PO PRN (20:45)
[2022-05-02] MEDS: ARIPiprazole 5 MG TAB PO SCH (20:45)
[2022-05-02] MEDS: ATORVASTATIN 40 MG TAB PO SCH (20:45)
[2022-05-03] MEDS: LEVOTHYROXINE SOD 0.1 MG TAB PO SCH (05:30)
[2022-05-03] MEDS: Ringers Lactate 1,000 ML IV SCH (05:30)
[2022-05-03] MEDS: metroNIDAZOLE 500 MG TABLET PO SCH ×2 (09:03→22:51)
[2022-05-03] MEDS: FAMOTIDINE 20 MG TAB PO SCH ×2 (09:03→22:51)
[2022-05-03] MEDS: ESCITALOPRAM 20 MG TAB PO SCH (09:03)
[2022-05-03] MEDS: ENOXAPARIN 40 MG/0.4 ML SQ SCH (09:03)
[2022-05-03] MEDS: FERROUS SULFATE 325 MG TAB PO SCH (09:04)
[2022-05-03] MEDS: DOCUSATE NA 100 MG CAP PO SCH ×2 (11:37→22:50)
[2022-05-03] MEDS: TRAMADOL HCL 50 MG TAB PO PRN ×2 (13:57→22:58)
[2022-05-03 16:45] VITALS: O2SAT 95
--- NOTE | 2022-05-03 17:05 | P.PN ---
Subjective Date of Service: 05/03/22 Chief Complaint: Syncope, chest pain, anemia patient seen and examined at bedside, no acute complaints. Review of Systems 10-point ROS is otherwise unremarkable Physical Examination - Vital Signs Temperature: 97.4 F Blood Pressure: 94/52 Pulse: 77 Respirations: 14 Pulse Ox (%): 95 - Studies Laboratory Last Values WBC 4.8 K/uL (4.3-10.9) 04/29/22 12: RBC 2.66 M/uL (3.86-4.86) L 04/29/22 12:27 Hgb 8.0 g/dL (12.0-15.0) L 04/29/22 12: Hct 24.2 % (36.0-45.0) L 04/29/22 12: MCV 90.9 fL (80-100) 04/29/22 12: MCH 30.2 pg (27.0-35.0) 04/29/22 12: MCHC 33.2 g/dL (32.0-36.0) 04/29/22 12: RDW 16.9 % (12.1-15.2) H 04/29/22 12:27 Plt Count 376 K/uL (152-406) 04/29/22 12: MPV 6.4 fL (7.6-11.3) L 04/29/22 12:27 Neutrophils % 54.0 % (41.7-73.7) 04/29/22 12: Lymphocytes % 37.1 % (15.3-44.8) 04/29/22 12: Monocytes % 3.6 % (3.3-12.3) 04/29/22 12:27 Eosinophils % 3.8 % (0-4.4) 04/29/22 12: Basophils % 1.5 % (0-1.3) H 04/29/22 12: Absolute Neutrophils 2.6 K/uL (1.8-8.0) 04/29/22 12: Absolute Lymphocytes 1.8 K/uL (0.7-4.9) 04/29/22 12: Absolute Monocytes 0.2 K/uL (0.1-1.3) 04/29/22 12: Absolute Eosinophils 0.2 K/uL (0-0.5) 04/29/22 12:27 Absolute Basophils 0.1 K/uL (0-0.5) 04/29/22 12:27 Sodium 139 mmol/L (136-145) 04/29/22 12:27 Potassium 3.5 mmol/L (3.5-5.1) 04/29/22 12:27 Chloride 107 mmol/L (98-107) 04/29/22 12:27 Carbon Dioxide 25 mmol/L (21-32) 04/29/22 12:27 Anion Gap 10.5 mEq/L (5.0-15.0) 04/29/22 12:27 BUN 5 mg/dL (7-18) L 04/29/22 12:27 Creatinine 1.08 mg/dL (0.55-1.3) 04/29/22 12:27 Est GFR (CKD-EPI) 67 ml/min (=/>90) L 04/29/22 12:27 Glucose 80 mg/dL (74-106) 04/29/22 12:27 Calcium 7.9 mg/dL (8.5-10.1) L 04/29/22 12:27 Total Bilirubin 0.3 mg/dL (0.2-1.0) 04/29/22 12:27 AST 58 U/L (15-37) H 04/29/22 12:27 ALT 28 U/L (12-78) 04/29/22 12:27 Alkaline Phosphatase 33 U/L (45-117) L 04/29/22 12:27 Troponin I High Sens 3.9 pg/mL (<58.9) 04/29/22 12:27 NT-Pro-B Natriuret Pep 31 pg/mL (<125) 04/29/22 12:27 Serum Total Protein 7.6 g/dL (6.4-8.2) 04/29/22 12:27 Albumin 3.4 g/dL (3.4-5.0) 04/29/22 12:27 Globulin 4.2 g/dL (2.3-3.5) H 04/29/22 12:27 Albumin/Globulin Ratio 0.8 (1.1-1.8) L 04/29/22 12:27 Lipase 114 U/L (73-393) 04/29/22 12:27 Urine pH 6.0 (5.0-7.0) 04/29/22 12:30 Ur Specific Regan 1.015 (1.005-1.030) 04/29/22 12:30 Glucose (UA)(Auto) Negative (Negative) 04/29/22 12:30 Urine Ketones Negative (Negative) 04/29/22 12:30 Urine Blood Trace-intact (Negative) H 04/29/22 12:30 Urine Nitrite Positive (Negative) H 04/29/22 12:30 Ur Leukocyte Esterase 2+ (Negative) H 04/29/22 12:30 Urine Total Protein Negative (Negative) 04/29/22 12:30 Ur Specific Regan (HCG) 1.015 (1.005-1.030) 04/29/22 12:33 Urine Test Neg (NEG) 04/29/22 12:33 SARS-CoV-2 Rap RNA(RT-PCR) Negative (NEGATIVE) 04/29/22 12:26 Medications List Reviewed: Yes Assessment And Plan - Plan Physical Exam: General: Alert, In no apparent distress HEENT: Atraumatic Respiratory: Clear to auscultation bilaterally, Normal air movement Cardiovascular: Normal pulses, Regular rate/rhythm Gastrointestinal: Normal bowel sounds, Soft and benign Musculoskeletal: No clubbing, No swelling Integumentary: Other (Vitiligo) Conclusions/Impression: Antibiotics Flagyl: 04/30current Rocephin: 04/30current Assessment/Plan Trichomonas vaginalis -Continue Flagyl Advised patient that her partner also needs to be treated Syphilis rule out RPR reactive, RPR titer 1:1 -RPR likely reactive secondary to hashimotos thyroiditis. -patient allergic to penicillins, as such recommend continuing Rocephin for possible primary syphilis secondary to patient being high risk while we await further results FTAABS pending -HIV ab/ag and gonorrhea screening also pending Anemia Continue to monitor H&H Hypotension Medical management per primary team Hashimotos thyroiditis -continua levothyroxine Plan of care discussed with Dr. Fraire Thank you for consultation Physician Review: Patient Assessed, Agree with Above Assessment and Plan
[2022-05-03] MEDS: CEFTRIAXONE 1,000 MG in NA CHLORIDE 0.9% 50 ML IVPB SCH (18:29)
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
[2022-05-03] MEDS: ARIPiprazole 5 MG TAB PO SCH (22:50)
[2022-05-03] MEDS: ATORVASTATIN 40 MG TAB PO SCH (22:51)
[2022-05-04] MEDS: LEVOTHYROXINE SOD 0.1 MG TAB PO SCH (05:09)
[2022-05-04] MEDS: ESCITALOPRAM 20 MG TAB PO SCH (08:27)
[2022-05-04] MEDS: ENOXAPARIN 40 MG/0.4 ML SQ SCH (08:27)
[2022-05-04] MEDS: FAMOTIDINE 20 MG TAB PO SCH (08:28)
[2022-05-04] MEDS: DOCUSATE NA 100 MG CAP PO SCH (08:28)
[2022-05-04] MEDS: metroNIDAZOLE 500 MG TABLET PO SCH (08:28)
[2022-05-04] MEDS: FERROUS SULFATE 325 MG TAB PO SCH (08:28)
[2022-05-04 08:36] VITALS: TEMP 97.5
--- NOTE | 2022-05-04 12:14 | P.PN ---
Subjective Date of Service: 05/04/22 Chief Complaint: Syncope, chest pain, anemia patient seen and examined at bedside, denies nausea/vomiting vaginal discharge/pelvic pain. Review of Systems 10-point ROS is otherwise unremarkable Physical Examination - Vital Signs Temperature: 97.5 F Blood Pressure: 112/73 Pulse: 65 Respirations: 18 Pulse Ox (%): 98 - Studies Active Medications Acetaminophen (Acetaminophen 500 Mg Tab) 500 mg PO Q4HP PRN PRN Reason: Pain scale 2-4 (Mild) Last Admin: 05/02/22 03:23 Dose: 500 mg Aripiprazole (Aripiprazole 5 Mg Tab) 5 mg PO BEDTIME [facility] Last Admin: 05/03/22 22:50 Dose: 5 mg Atorvastatin Calcium (Atorvastatin 40 Mg Tab) 40 mg PO BEDTIME [facility] Last Admin: 05/03/22 22:51 Dose: 40 mg Docusate Sodium (Docusate Na 100 Mg Cap) 100 mg PO BID [facility] Last Admin: 05/04/22 08:28 Dose: 100 mg Enoxaparin Sodium (Enoxaparin 40 Mg/0.4 Ml) 40 mg SQ DAILY [facility] Last Admin: 05/04/22 08:27 Dose: 40 mg Escitalopram Oxalate (Escitalopram 20 Mg Tab) 5 mg PO DAILY [facility] Last Admin: 05/04/22 08:27 Dose: 5 mg Famotidine (Famotidine 20 Mg Tab) 20 mg PO BID [facility]; Protocol Last Admin: 05/04/22 08:28 Dose: 20 mg Ferrous Sulfate (Ferrous Sulfate 325 Mg Tab) 325 mg PO DAILY [facility] Last Admin: 05/04/22 08:28 Dose: 325 mg Ceftriaxone Sodium 1,000 mg/ (Sodium Chloride) 50 mls @ 100 mls/hr IVPB DAILY@1800 [facility]; Protocol Last Admin: 05/03/22 18:29 Dose: 50 mls Levothyroxine Sodium (Levothyroxine Sod 0.1 Mg Tab) 0.1 mg PO DAILYAC [facility] Last Admin: 05/04/22 05:09 Dose: 0.1 mg Melatonin (Melatonin 5 Mg Tablet) 5 mg PO BEDTIME PRN PRN PRN Reason: INSOMNIA Last Admin: 05/02/22 20:45 Dose: 5 mg Metronidazole (Metronidazole 500 Mg Tablet) 500 mg PO BID [facility]; Protocol Stop: 05/06/22 21:01 Last Admin: 05/04/22 08:28 Dose: 500 mg Ondansetron HCl (Ondansetron 4 Mg/2 Ml Vial) 4 mg IV Q6HP PRN PRN Reason: NAUSEA / VOMITING Sodium Chloride (Flush Normal Saline 10 Ml) 10 ml IV BID JENNA Last Admin: 05/04/22 08:28 Dose: 10 ml Tramadol HCl (Tramadol Hcl 50 Mg Tab) 50 mg PO TID PRN PRN Reason: Pain scale 5-7 (Moderate) Last Admin: 05/03/22 22:58 Dose: 50 mg Medications List Reviewed: Yes Assessment And Plan - Plan Physical Exam: General: Alert, In no apparent distress HEENT: Atraumatic Respiratory: Clear to auscultation bilaterally, Normal air movement Cardiovascular: Normal pulses, Regular rate/rhythm Gastrointestinal: Normal bowel sounds, Soft and benign Musculoskeletal: No clubbing, No swelling Integumentary: Other (Vitiligo) Conclusions/Impression: Antibiotics Flagyl: 04/30current Rocephin: 04/30current Assessment/Plan Trichomonas vaginalis -Continue Flagyl x7 days Advised patient that her partner also needs to be treated Syphilis rule out RPR reactive, RPR titer 1:1 -RPR likely reactive secondary to hashimotos thyroiditis. -patient allergic to penicillins, as such recommend continuing Rocephin for possible primary syphilis secondary to patient being high risk while we await further results FTAABS pending -HIV ab/ag and gonorrhea screening also pending Anemia Continue to monitor H&H Hypotension Medical management per primary team Hashimotos thyroiditis -continue levothyroxine Plan of care discussed with Dr. Fraire Thank you for consultation Physician Review: Patient Assessed, Agree with Above Assessment and Plan
--- NOTE | 2022-05-04 15:12 | P.DS ---
Admission Date: 04/29/22 Discharge Date: 05/04/22 Disposition: ROUTINE DISCHARGE Discharge Condition: GOOD Reason for Admission: Syncope, chest pain, anemia Brief History of Present Illness: 36-year-old female with history of CHFunknown EF, hypertension, hypothyroidism, chronic anemia presents to the emergency department for multiple episode of syncope, chest pain. She reports that she has been feeling very dizzy/weak when she stands up or exerts herself had 2 episodes of syncope today. She also complains of "burning" chest pain. She reports she was evaluated at the hospital in [place] in September for anemia, they thought she possibly had thyroid cancer and may be a mass in her appendix there put in doing surgery but she had cardiac work-up and they told her that she had an enlarged heart and was not a candidate for surgery, they also reportedly told her that she would need a pacemaker/defibrillator after learning that she became upset and left AGAINST MEDICAL ADVICE has not seek further care anywhere else for any of the above problems. She has been without any of her medications at home she does not have the resources to obtain them she reports that medication she is supposed to be on his levothyroxine. She has been anemic in the past requiring blood transfusion she reports embonate unable to find out why she is anemic she does report heavy menses only lasting 2 to 3 days denies any GI bleeding FOBT nega tive in the ER stool soft and brown has normocytic anemia. Patient also with urinary tract infection reports he does have history of urinary tract infections. ED lead technical writer wishes to admit for further evaluation and management of syncope, chest pain, UTI. Hospital Course: 36 y o female pt with segmental for management of work-up of chest pain and suspicion for infectious process. She did have significant lab work with RPR slightly elevated at 1:1. this was discussed with ID specialist and was thought of as insignificant. her HIV, herpes, hepatitis, TPA-antibody test result was pending. she also had depression symptoms and she was started on oral antidepressants as per Psychiatrist recs. She did have low iron sat and was started on oral iron supplements. she also attested to homelessness and her situation was discussed with elementary school social worker who provided her with resources for her self protection and care. she was cleared for discharge to complete oral course of flagyl for her trichomonas infection and to follow up with infectious disease specialist and psychiatry for management of her depression and STI management. Vital Signs/Physical Exam: Temp Pulse Resp BP Pulse Ox 97.5 F 65 18 112/73 98 05/04/22 12:13 05/04/22 12:13 05/04/22 12:13 05/04/22 12:13 05/04/22 12:13 General: Alert, Oriented x3 HEENT: Atraumatic, Normocephalic Neck: Supple Respiratory: Normal air movement Cardiovascular: Regular rate/rhythm, Normal S1 S2 Gastrointestinal: Soft and benign Musculoskeletal: No swelling Neurological: Normal speech Laboratory Data at Discharge: WBC 3.7 K/uL (4.3-10.9) L D 05/02/22 05:45 Hgb 7.2 g/dL (12.0-15.0) L 05/02/22 05:45 Hct 21.5 % (36.0-45.0) L 05/02/22 05:45 Plt Count 338 K/uL (152-406) 05/02/22 05:45 Sodium 135 mmol/L (136-145) L 05/02/22 05:45 Potassium 4.2 mmol/L (3.5-5.1) 05/02/22 05:45 BUN 6 mg/dL (7-18) L 05/02/22 05:45 Creatinine 1.01 mg/dL (0.55-1.3) 05/02/22 05:45 Glucose 92 mg/dL (74-106) 05/02/22 05:45 Total Bilirubin 0.2 mg/dL (0.2-1.0) 05/02/22 05:45 AST 39 U/L (15-37) H 05/02/22 05:45 ALT 21 U/L (12-78) 05/02/22 05:45 Alkaline Phosphatase 32 U/L (45-117) L 05/02/22 05:45 Triglycerides 187 mg/dL (<150) H 04/30/22 03:40 Cholesterol 351 mg/dL (<200) H 04/30/22 03:40 HDL Cholesterol 53 mg/dL (40-60) 04/30/22 03:40 Cholesterol/HDL Ratio 6.62 04/30/22 03:40 Lipase 114 U/L (73-393) 04/29/22 12:27 Home Medications: Levothyroxine Sodium [Synthroid] 100 mcg PO DAILY 04/29/22 ARIPiprazole [Abilify*] 5 mg PO BEDTIME 30 Days tab 05/04/22 Atorvastatin Calcium [Lipitor] 40 mg PO BEDTIME 30 Days tab 05/04/22 Escitalopram [Lexapro*] 5 mg PO DAILY 30 Days #30 tab 05/04/22 Ferrous Sulfate [Ferrous Sulfate*] 325 mg PO DAILY #30 tab 05/04/22 metroNIDAZOLE [Flagyl*] 500 mg PO TID 5 Days #15 05/04/22 New Medications: ARIPiprazole [Abilify*] 5 mg PO BEDTIME 30 Days tab Ferrous Sulfate [Ferrous Sulfate*] 325 mg PO DAILY #30 tab metroNIDAZOLE [Flagyl*] 500 mg PO TID 5 Days #15 Escitalopram [Lexapro*] 5 mg PO DAILY 30 Days #30 tab Atorvastatin Calcium [Lipitor] 40 mg PO BEDTIME 30 Days tab Diet: Regular Activity: Ad kade Followup: NONE,NONE [Primary Care Provider] -
[2022-05-04 17:08] VITALS: BP 94/58
[2022-05-04 19:09] LABS: HIV AG/AB 4TH GEN Non-reactive (Non-reactive)
[2022-05-05 19:35] LABS: C.trachomatis RNA,TMA Not Detected (Not Detected)
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
== END 2022-05-04 17:03 | disposition home or self-care (01) | DRG 690 ==
LOC: ER 11:32 → ERHOLD 19:11 → UNDOADMOB 19:11 → 2ND 20:18 → OBSVTOIN 20:44
PROVIDERS: ADMIT Internal Medicine; ATTEND Internal Medicine
DX: N39.0 Urinary tract infection, site not specified (principal); I50.32 Chronic diastolic (congestive) heart failure; E03.9 Hypothyroidism, unspecified; R55 Syncope and collapse; R07.9 Chest pain, unspecified; F32.A Depression, unspecified; A59.01 Trichomonal vulvovaginitis; E06.3 Autoimmune thyroiditis; I95.9 Hypotension, unspecified; I11.0 Hypertensive heart disease with heart failure; E78.5 Hyperlipidemia, unspecified; D50.9 Iron deficiency anemia, unspecified; F41.9 Anxiety disorder, unspecified; F43.12 Post-traumatic stress disorder, chronic; G47.00 Insomnia, unspecified; Z59.01 Sheltered homelessness; Z20.822 Contact with and (suspected) exposure to COVID-19; A53.9 Syphilis, unspecified
CPT/HCPCS: 36415; 70450; 71045; 74177; 76536; 76705; 80053; 80061; 81003; 81015; 81025; 82728; 83540; 83690; 83880; 84439; 84443; 84466; 84480; 84481; 84484; 85025; 85379; 86592; 86593; 86780; 86850; 86900; 86901; 87086; 87088; 87389; 87490; 87590; 93005; 93306; 93880; 96361; 96374; 96375; 99285; G0378; J1650; J2405; J7030; J7040; J7120; Q9967; U0003

== ENCOUNTER 2024-07-23 10:05 | Emergency (ER) | payer SELFPAY ==
--- OUTSIDE RECORDS SUMMARY | 2024-07-23 10:09 | XMS REPORT | Continuity of Care Document ---
Author Name Unknown Address [address] [place] [address] [facility] Address [address] [facility] [address] [place] [address] Care Team Providers Care Sales Agent Business Services Name Role Phone Sarah Dahl Attending Clinician Unavailab LEISA Dove Attending Clinician Unavailable MICHAEL GARCIA Attending Clinician UnavailTARAN Montejo Attending Clinician Unavailable SABI MATHIS Attending Clinician Unavailable BATOOL ARELLANO Attending Clinician Unavailab DEVEN Nixon Attending Clinician Unavailable PATRICIA MAGUIRE Attending Clinician Unavail able CASSIDY RAMIREZ Attending Clinician Unavailable BEVERLEY ROQUE Attending Clinician Unavailab CARLEEN Maguire Attending Clinician Unavailable ROSY CAUSEY Attending Clinician Unavailable Carmelo García Attending Clinician Unavailable ISABEL STEVEN Attending Clinician Unavailable PRISCILA ROMAN Attending Clinician Unavailable PAULINA ORTEGA Attending Clinician Unavailab DESTINEE cohen BA Attending Clinician Unavailable CLEVE FERNANDO Attending Clinician Unavailable ARACELY XIE Attending Clinician UnavailMANOLO Savage Attending Clinician DOE Gonsalves Attending Clinician Unavaila CASSIDY Jorge Attending Clinician UnavailKOBY Gallagher Attending Clinician UnavailTIARA Granados Attending Clinician Un available INGRID GILL Attending Clinician Unavail able LIS MANSFIELD Attending Clinician Unavailable TARAN HERNÁNDEZ Admitting Clinician Unavailable DEVEN KHAN Admitting Clinician Unavailable PATRICIA MAGUIRE Admitting Clinician Unavail able ARACELY XIE Admitting Clinician UnavailDOE Byers Admitting Clinician Unavaila CASSIDY Jorge Admitting Clinician Unavailtrixie bassett Problems Condition Name Condition Details Condition Category Status Onset Date Resolution Date Last Treatment Date Treating Clinician Comments Source Uterine leiomyoma Uterine Leiomyoma Problem Active 11-19 00:00: 00 [facility] Urinary tract infectious disease Urinary Tract Infectious Disease Problem Active 11-19 00:00: 00 [facility] Menorrhagi a Menorrhagi a Problem Active 11-19 00:00: 00 [facility] Allergies, Adverse Reactions, Alerts Allergy Name Allergy Type Status Severity Reaction(s) Onset Date Inactive Date Treating Clinician Comments Source Amoxicil krystina Allergy to substanc e Active Hives [facility] Social History Smoking Status Start Date Stop Date Source Current Every Day Smoker [facility] Medications Ordered Medication Name Filled Medication Name Start Date Stop Date Current Medication? Ordering Clinician Indication Dosage Frequency Signature (SIG) Comments Components Source Cipro 500 mg tablet Take 1 tablet every 12 hours by oral route. Cipro 500 mg tablet Take 1 tablet every 12 hours by oral route. No 1 Q12H Cipro 500 mg tablet Take 1 tablet every 12 hours by oral route. [facility] ibuprofen 800 mg tablet Take 1 tablet 3 times a day by oral route. ibuprofen 800 mg tablet Take 1 tablet 3 times a day by oral route. No 1 TID ibuprofen 800 mg tablet Take 1 tablet 3 times a day by oral route. [facility] levothyroxi ne levothyroxi ne No levothyrox ine [facility] Vital Signs Vital Name Observation Time Observation Value Comments S ource BP Diastolic 2018-11-19 00:00:00 74 mm[Hg] [facility] BP Systolic 2018-11-19 00:00:00 107 mm[Hg] [facility] Body Weight 2018-11-19 00:00:00 187 [lb_av] [facility] Procedures Procedure Date / Time Performed Performing Clinicia n Source Delivery 2009-04-15 00:00:00 [facility] Plan of Care Planned Activity Planned Date Details Comments Source Diagnostic Test Pending 2018-11-19 00:00:00 urinalysis, dipstick [code = urinalysis, dipstick] [facility] Diagnostic Test Pending 2018-11-19 00:00:00 test, urine [code = test, urine] [facility] Diagnostic Test Pending 2018-11-19 00:00:00 culture, urine [code = culture, urine] [facility] Encounters Start Date/Time End Date/Time Encounter Type Admission Type Attending Clinicians Care Facility Care Department Encounter ID Source 2023-10-25 12:34:00 2023-10-25 16:20:00 Emergency ER Sarah Dahl [facility] [id number] [facility] 2023-10-23 15:16:00 2023-10-23 21:59:00 Emergency ER LEISA HENNING [facility] [id number] [facility] 2023-10-20 16:50:00 2023-10-20 18:30:00 Emergency ER MICHAEL GARCIA [facility] [id number] [facility] 2023-09-14 18:29:00 2023-09-19 21:41:00 Inpatient ER TRINASTEPHANIETARAN [facility] [id number] [facility] 2023-03-27 20:16:00 2023-03-27 21:52:00 Emergency ER SABI MATHIS [facility] [id number] [facility] 2023-03-05 22:33:00 2023-03-06 04:44:00 Emergency ER BATOOL ARELLANO [facility] [id number] [facility] 2023-02-24 14:39:00 2023-03-01 18:01:00 Inpatient ER DEVEN KHAN [facility] [id number] [facility] 2023-02-23 23:40:00 2023-02-23 23:40:00 Emergency ER LEISA HENNING [facility] [id number] [facility] 2023-01-17 04:10:00 2023-01-18 14:38:00 Inpatient ER PATRICIA MAGUIRE [facility] [id number] [facility] 2021-06-25 04:09:00 2021-06-28 11:36:00 Inpatient ER PATRICIA MAGUIRE [facility] [id number] [facility] 2020-03-25 15:58:00 2020-03-25 16:50:00 Emergency ER CASSIDY RAMIREZ [facility] [id number] [facility] 2019-12-08 11:39:00 2019-12-08 14:30:00 Emergency ER MYA BEVERLEY [facility] [id number] [facility] 2019-04-12 12:31:00 2019-04-12 15:43:00 Emergency ER CARLEEN AYON [facility] [id number] [facility] 2018-11-19 16:13:00 2018-11-19 16:13:00 Outpatient ROSY MCKEON [facility] [id number] [facility] 2018-11-19 00:00:00 2018-11-19 00:00:00 Rosy Causey, WHNP: [address], [address], [place] [address] , Ph. [phone] [facility] OBGYN [id number] [facility] 2018-08-31 14:56:00 2018-08-31 18:39:00 Emergency ER BEVERLEY ROQUE [facility] [id number] [facility] 2018-07-31 12:35:00 2018-07-31 12:35:00 Outpatient Carmelo Lewis [facility] [id number] [facility] 2018-06-29 09:00:00 2018-06-29 09:00:00 Outpatient Carmelo Lewis [facility] [id number] [facility] 2018-06-01 16:31:00 2018-06-01 19:41:00 Emergency ER ISABEL STEVEN [facility] [id number] [facility] 2018-05-28 16:33:00 2018-05-30 15:16:00 Inpatient ER PATRICIA MAGUIRE [facility] [id number] [facility] 2018-04-20 12:10:00 2018-04-20 15:05:00 Emergency ER JIMMY ROMANS [facility] [id number] [facility] 2018-02-27 23:41:00 2018-02-28 02:06:00 Emergency ER PRISCILA ROMAN [facility] [id number] [facility] 2017-05-15 12:10:00 2017-05-15 14:57:00 Emergency ER UGRICK, CLEMENT [facility] [id number] [facility] 2010-09-20 08:44:00 2010-09-20 11:00:00 Emergency ER UGORKAREN, CLEMENT [facility] [id number] [facility] 2010-04-16 04:19:00 2010-04-16 05:40:00 Emergency ER SARA, DESTINEE [facility] [id number] [facility] 2010-01-30 22:56:00 2010-01-31 01:51:00 Emergency ER SARA, DESTINEE [facility] [id number] [facility] 2010-01-23 20:56:00 2010-01-23 23:14:00 Emergency ER CLEVE FERNANDO [facility] [id number] [facility] 2009-10-25 02:35:00 2009-10-27 11:04:00 Inpatient ER ANNE-MARIEARACELY [facility] [id number] [facility] 2009-07-17 17:16:00 2009-07-17 20:10:00 Emergency ER IMMARAAlison, PREMSWARUP [facility] [id number] [facility] 2009-06-04 10:27:00 2009-06-04 10:27:00 Outpatient EL DOE MUKHERJEE [facility] [id number] [facility] 2009-04-18 16:28:00 2009-04-20 17:30:00 Inpatient ER DOE MUKHERJEE [facility] [id number] [facility] 2009-03-25 17:22:00 2009-03-26 14:15:00 Inpatient ER DOE MUKHERJEE [facility] [id number] [facility] 2009-02-04 10:52:00 2009-02-04 15:47:00 Emergency ER IMMARAAlison, PREMSWARUP [facility] [id number] [facility] 2008-06-26 09:55:00 2008-06-26 15:40:00 Inpatient ER CASSIDY GANDHI [facility] [id number] [facility] 2008-05-02 15:15:00 2008-05-02 19:15:00 Emergency ER IMMARAAlison, PREMSWARUP [facility] [id number] [facility] 2008-03-09 08:12:00 2008-03-09 09:35:00 Emergency ER BA, DESTINEE [facility] [id number] [facility] 2008-02-06 16:03:00 2008-02-06 17:58:00 Emergency ER PAULINA ORTEGA [facility] [id number] [facility] 2008-01-14 02:06:00 2008-01-14 05:20:00 Emergency ER SARA, DESTINEE [facility] [id number] [facility] 2007-10-21 11:17:00 2007-10-22 15:00:00 Inpatient ER DOE MUKHERJEE [facility] [id number] [facility] 2007-09-19 06:45:00 2007-09-20 07:59:00 Inpatient ER CASSIDY GANDHI [facility] [id number] [facility] 2007-09-07 04:11:00 2007-09-07 08:15:00 Inpatient ER CASSIDY GANDHI [facility] [id number] [facility] 2007-08-26 15:40:00 2007-08-27 07:19:00 Inpatient ER CASSIDY GANDHI [facility] [id number] [facility] 2007-06-16 12:50:00 2007-06-16 17:58:00 Emergency ER PAULINA ORTEGA [facility] [id number] [facility] 2007-05-02 10:37:00 2007-05-02 12:10:00 Emergency ER FARRAH KOBY [facility] [id number] [facility] 2007-04-04 14:38:00 2007-04-04 18:50:00 Emergency ER FARRAH KOBY [facility] [id number] [facility] 2006-10-25 14:04:00 2006-10-25 15:30:00 Emergency ER TIARA ARTHUR [facility] [id number] [facility] 2006-10-22 12:57:00 2006-10-22 16:50:00 Emergency ER FARRAH KOBY [facility] [id number] [facility] 2006-07-26 10:01:00 2006-07-26 12:30:00 Emergency ER DESTINEE RUIZ [facility] [id number] [facility] 2006-07-04 13:30:00 2006-07-04 15:00:00 Emergency ER PAULINA ORTEGA [facility] [id number] [facility] 2005-10-23 16:57:00 2005-10-23 18:30:00 Emergency ER SARA, DESTINEE [facility] [id number] [facility] 2005-06-13 22:56:00 2005-06-14 00:34:00 Emergency ER IMMARAJ, ANGYSWARZANDRA [facility] [id number] [facility] 2004-12-27 03:10:00 2004-12-27 08:30:00 Emergency ER BA, DESTINEE [facility] [id number] [facility] 2004-12-26 06:39:00 2004-12-26 09:05:00 Emergency ER INGRID JACOBS [facility] [id number] [facility] 2004-09-28 12:23:00 2004-09-29 09:30:00 Inpatient EL OKSANACASSIDY [facility] [id number] [facility] 2004-09-22 16:00:00 2004-09-22 19:20:00 Inpatient ER OKSANACASSIDY BYRD [facility] [id number] [facility] 2004-07-19 19:00:00 2004-07-20 09:00:00 Inpatient EL OKSANACASSIDY Aquino [facility] [id number] [facility] 2004-07-12 20:54:00 2004-07-13 08:45:00 Inpatient EL OKSANACASSIDY [facility] [id number] [facility] 2004-05-31 11:05:00 2004-05-31 14:15:00 Emergency ER CASSIDY GANDHI [facility] [id number] [facility] 2003-11-16 18:48:00 2003-11-16 21:10:00 Emergency ER DONALLIS WESTON [facility] [id number] [facility]
--- NOTE | 2024-07-23 10:31 | ER ---
Nurse's Notes [facility] Name: Fito Sosa Age: 38 yrs Sex: Female : 1985 Arrival Date: 07/23/2024 Time: 10:05 Bed IW5 Private MD: Diagnosis: Assessment: 07/23 10:28 Reassessment: pt not in lobby, registration staff reports pt walked out. iw ED Course: 10:10 Patient arrived in ED. im 10:16 Caleb Lozoya MD is Attending Physician. rt 10:30 Marisel Sosa RN is Primary Nurse. iw Administered Medications: No medications were administered Outcome: 10:30 Eloped from waiting room, before seeing physician Time discovered patient gone: July at 10:30 10:30 Patient left the ED. iw Signatures: Marisel Sosa RN RN iw Caleb Lozoya MD MD rt Shaila Watkins im
== END 2024-07-23 10:30 | disposition left against medical advice (07) ==
LOC: ER 10:05
DX: Z02.9 Encounter for administrative examinations, unspecified (principal)

== ENCOUNTER 2024-07-23 14:41 | Emergency (ER) | payer SELFPAY ==
--- OUTSIDE RECORDS SUMMARY | 2024-07-23 14:43 | XMS REPORT | Continuity of Care Document ---
Author Name Unknown Address [address] [facility] [address] [id number] [facility] thconnect Address [address] [facility] [address] [place] [address] Care Team Providers Care Pier Runner Name Role Phone Sarah Dahl Attending Clinician [...] Admitting Clinician Unavaila CASSIDY Jorge Admitting Clinician Unavailabl e Problems Condition Name Condition Details Condition Category Status Onset Date Resolution Date Last Treatment Date Treating Clinician Comments Source Uterine leiomyoma Uterine Leiomyoma Problem Active 11-19 00:00: 00 [facility] Urinary tract infectious disease Urinary Tract Infectious Disease Problem Active 11-19 00:00: 00 [facility] Menorrhagi a Menorrhagi a Problem Active 11-19 00:00: 00 [facility] Allergies, Adverse Reactions, Alerts Allergy Name Allergy Type Status Severity Reaction(s) Onset Date Inactive Date Treating Clinician Comments Source Amoxicil krystina Allergy to substanc e Active Hives [facility] Social History Smoking Status Start Date Stop Date Source Current Every Day Smoker [facility] Medications Ordered Medication Name Filled Medication Name Start Date Stop Date Current Medication? Ordering Clinician Indication Dosage Frequency Signature (SIG) Comments Components Source levothyroxi ne levothyroxi ne No levothyrox ine [facility] Cipro 500 mg tablet Take 1 tablet every 12 hours by oral route. Cipro 500 mg tablet Take 1 tablet every 12 hours by oral route. No 1 Q12H Cipro 500 mg tablet Take 1 tablet every 12 hours by oral route. [facility] ibuprofen 800 mg tablet Take 1 tablet 3 times a day by oral route. ibuprofen 800 mg tablet Take 1 tablet 3 times a day by oral route. No 1 TID ibuprofen 800 mg tablet Take 1 tablet 3 times a day by oral route. [facility] Vital Signs Vital Name Observation Time Observation Value Comments S ource BP Diastolic 2018-11-19 00:00:00 74 mm[Hg] [facility] BP Systolic 2018-11-19 00:00:00 107 mm[Hg] [facility] Body Weight 2018-11-19 00:00:00 187 [lb_av] [facility] Procedures Procedure Date / Time Performed Performing Clinicia n Source Delivery 2009-04-15 00:00:00 [facility] Plan of Care Planned Activity Planned Date Details Comments Source Diagnostic Test Pending 2018-11-19 00:00:00 urinalysis, dipstick [code = urinalysis, dipstick] [facility] Diagnostic Test Pending 2018-11-19 00:00:00 test, urine [code = test, urine] [facility] Diagnostic Test Pending 2018-11-19 00:00:00 culture, urine [code = culture, urine] [facility] Encounters Start Date/Time End Date/Time Encounter Type Admission Type Attending [facility] Care Facility Care Department Encounter ID Source 2023-10-25 12:34:00 2023-10-25 16:20:00 Emergency ER Sarah Dahl [facility] [id number] [facility] 2023-10-23 15:16:00 2023-10-23 21:59:00 Emergency ER LEISA HENNING [facility] [id number] [facility] 2023-10-20 16:50:00 2023-10-20 18:30:00 Emergency ER KATHRYN GARCIAYLE [facility] [id number] [facility] 2023-09-14 18:29:00 2023-09-19 21:41:00 Inpatient ER TRINASTEPHANIE EMILYREX [facility] [id number] [facility] 2023-03-27 20:16:00 2023-03-27 21:52:00 Emergency ER SABI MATHIS [facility] [id number] [facility] 2023-03-05 22:33:00 2023-03-06 04:44:00 Emergency ER BATOOL ARELLANO [facility] [id number] [facility] 2023-02-24 14:39:00 2023-03-01 18:01:00 Inpatient ER DEVEN KHAN [facility] [id number] [facility] 2023-02-23 23:40:00 2023-02-23 23:40:00 Emergency ER LEISA HENNING [facility] [id number] [facility] 2023-01-17 04:10:00 2023-01-18 14:38:00 Inpatient ER PATRICIA MAGUIRE [facility] [id number] [facility] 2021-06-25 04:09:00 2021-06-28 11:36:00 Inpatient ER PATRICIA [facility] [id number] [facility] 2020-03-25 15:58:00 2020-03-25 16:50:00 Emergency ER CASSIDY RAMIREZ [facility] [id number] [facility] 2019-12-08 11:39:00 2019-12-08 14:30:00 Emergency ER MYA BEVERLEY [facility] [id number] [facility] 2019-04-12 12:31:00 2019-04-12 15:43:00 Emergency ER CARLEEN AYON [facility] [id number] [facility] 2018-11-19 16:13:00 2018-11-19 16:13:00 Outpatient ROSY MCKEON [facility] [id number] [facility] 2018-11-19 00:00:00 2018-11-19 00:00:00 Rosy Causey, NP: [address] [facility], [address], [place] [address] , Ph. [phone] [facility] [id number] 0211 [facility] 2018-08-31 14:56:00 2018-08-31 18:39:00 Emergency ER BEVERLEY ROQUE [facility] [id number] [facility] 2018-07-31 12:35:00 2018-07-31 12:35:00 Outpatient Carmelo Lewis [facility] [id number] [facility] 2018-06-29 09:00:00 2018-06-29 09:00:00 Outpatient Carmelo Lewis [facility] [id number] [facility] 2018-06-01 16:31:00 2018-06-01 19:41:00 Emergency ER ISABEL STEVEN [facility] [id number] [facility] 2018-05-28 16:33:00 2018-05-30 15:16:00 Inpatient ER PATRICIA [facility] [id number] [facility] 2018-04-20 12:10:00 2018-04-20 15:05:00 Emergency ER PRISCILA ROMAN [facility] [id number] [facility] 2018-02-27 23:41:00 2018-02-28 02:06:00 Emergency ER PRISCILA ROMAN [facility] [id number] [facility] 2017-05-15 12:10:00 2017-05-15 14:57:00 Emergency ER UGRICK CLEMENT [facility] [id number] [facility] 2010-09-20 08:44:00 2010-09-20 11:00:00 Emergency ER UGORKAREN, CLEMENT [facility] [id number] [facility] 2010-04-16 04:19:00 2010-04-16 05:40:00 Emergency ER BA, DESTINEE [facility] [id number] [facility] 2010-01-30 22:56:00 2010-01-31 01:51:00 Emergency ER BA, DESTINEE [facility] [id number] [facility] 2010-01-23 20:56:00 2010-01-23 23:14:00 Emergency ER CLEVE FERNANDO [facility] [id number] [facility] 2009-10-25 02:35:00 2009-10-27 11:04:00 Inpatient ER ARACELY XIE [facility] [id number] [facility] 2009-07-17 17:16:00 2009-07-17 20:10:00 Emergency ER IMMARAJ, PREMSWARUP [facility] [id number] [facility] 2009-06-04 10:27:00 2009-06-04 10:27:00 Outpatient EL DOE MUKHERJEE [facility] [id number] [facility] 2009-04-18 16:28:00 2009-04-20 17:30:00 Inpatient ER DOE MUKHERJEE [facility] [id number] [facility] 2009-03-25 17:22:00 2009-03-26 14:15:00 Inpatient ER DOE MUKHERJEE [facility] [id number] [facility] 2009-02-04 10:52:00 2009-02-04 15:47:00 Emergency ER IMMARAJ, PREMARUP [facility] [id number] [facility] 2008-06-26 09:55:00 2008-06-26 15:40:00 Inpatient ER CASSIDY GANDHI [facility] [id number] [facility] 2008-05-02 15:15:00 2008-05-02 19:15:00 Emergency ER IMMARAJ, PREMSWARUP [facility] [id number] [facility] 2008-03-09 08:12:00 2008-03-09 09:35:00 Emergency ER BA, DESTINEE [facility] [id number] [facility] 2008-02-06 16:03:00 2008-02-06 17:58:00 Emergency ER PAULINA ORTEGA [facility] [id number] [facility] 2008-01-14 02:06:00 2008-01-14 05:20:00 Emergency ER BA, DESTINEE [facility] [id number] [facility] 2007-10-21 11:17:00 2007-10-22 15:00:00 Inpatient ER YAZ, DOE [facility] [id number] [facility] 2007-09-19 06:45:00 2007-09-20 07:59:00 Inpatient ER CASSIDY GANDHI [facility] [id number] [facility] 2007-09-07 04:11:00 2007-09-07 08:15:00 Inpatient ER CASSIDY GANDHI [facility] [id number] [facility] 2007-08-26 15:40:00 2007-08-27 07:19:00 Inpatient ER CASSIDY GANDHI [facility] [id number] [facility] 2007-06-16 12:50:00 2007-06-16 17:58:00 Emergency ER PAULINA ORTEGA [facility] [id number] [facility] 2007-05-02 10:37:00 2007-05-02 12:10:00 Emergency ER KOBY YAN [facility] [id number] [facility] 2007-04-04 14:38:00 2007-04-04 18:50:00 Emergency ER KOBY YAN [facility] [id number] [facility] 2006-10-25 14:04:00 2006-10-25 15:30:00 Emergency ER TIARA ARTHUR [facility] [id number] [facility] 2006-10-22 12:57:00 2006-10-22 16:50:00 Emergency ER KOBY YAN [facility] [id number] [facility] 2006-07-26 10:01:00 2006-07-26 12:30:00 Emergency ER SARA DESTINEE [facility] [id number] [facility] 2006-07-04 13:30:00 2006-07-04 15:00:00 Emergency ER PAULINA ORTEGA [facility] [id number] [facility] 2005-10-23 16:57:00 2005-10-23 18:30:00 Emergency ER DESTINEE RUIZ [facility] [id number] [facility] 2005-06-13 22:56:00 2005-06-14 00:34:00 Emergency ER DARLINGARAMANOLO Rosas [facility] [id number] [facility] 2004-12-27 03:10:00 2004-12-27 08:30:00 Emergency ER DESTINEE RUIZ [facility] [id number] [facility] 2004-12-26 06:39:00 2004-12-26 09:05:00 Emergency ER INGRID JACOBS [facility] [id number] [facility] 2004-09-28 12:23:00 2004-09-29 09:30:00 Inpatient EL OKSANACASSIDY Aquino [facility] [id number] [facility] 2004-09-22 16:00:00 2004-09-22 19:20:00 Inpatient ER CASSIDY GANDHI [facility] [id number] [facility] 2004-07-19 19:00:00 2004-07-20 09:00:00 Inpatient EL OKSANACASSIDY BYRD [facility] [id number] [facility] 2004-07-12 20:54:00 2004-07-13 08:45:00 Inpatient EL OKSANACASSIDY Aquino [facility] [id number] [facility] 2004-05-31 11:05:00 2004-05-31 14:15:00 Emergency ER CASSIDY GANDHI [facility] [id number] [facility] 2003-11-16 18:48:00 2003-11-16 21:10:00 Emergency ER [facility]AL[facility] [id number] [facility]
[2024-07-23 16:10] LABS: Absolute Eosinophils 0.2 K/uL (0-0.5); Absolute Lymphocytes (CBC) 1.8 K/uL (0.7-4.9); Absolute Monocytes 0.3 K/uL (0.1-1.3); Basophils % 0.7 % (0-1.3); Eosinophils % 3.7 % (0-4.4); Hematocrit 23.7 % (36.0-45.0); Hemoglobin 7.9 g/dL (12.0-15.0); Lymphocytes % 33.5 % (15.3-44.8); MCH 30.3 pg (27.0-35.0); MCHC 33.3 g/dL (32.0-36.0); MPV 6.4 fL (7.6-11.3); Monocytes % 5.4 % (3.3-12.3); Neutrophils % 56.7 % (41.7-73.7); Platelets 314 thou/uL (152-406); RBC Red Blood Cell Count 2.61 M/uL (3.86-4.86); Red Cell Distribution Width 17.7 % (12.1-15.2)
--- NOTE | 2024-07-23 16:14 | RAD REPORT ---
EXAMINATION: ONE VIEW CHEST XR CLINICAL INDICATION: Female, 38 years old.,CHEST PAIN TECHNIQUE: Frontal chest projection is submitted. Examination is limited by patient positioning and t echnique. COMPARISON: 04/30/2022 FINDINGS: The lungs are well inflated and clear. Stable mild elevation of the right hemidiaphragm. No pneumotho rax or sizable effusion. The heart is normal in size. IMPRESSION: No acute intrathoracic abnormalities.
[2024-07-23 16:35] LABS: ALT/SGPT 26 U/L (13-56); AST/SGOT 61 U/L (15-37); Albumin 3.8 g/dL (3.4-5.0); Albumin/Globulin Ratio 0.9 (1.1-1.8); Alkaline Phosphatase 40 U/L (45-117); Anion Gap 10.3 mEq/L (5.0-15.0); BUN Blood Urea Nitrogen 7 mg/dL (7-18); Bicarbonate 25 mEq/L (21-32); Bilirubin Total 0.3 mg/dL (0.2-1.0); Globulin 4.3 g/dL (2.3-3.5); Glomerular Filtration Rate 59 ml/min (=/>90); Glucose Level 84 mg/dL (74-106); NT PRO-BNP 16 pg/mL (<125); Potassium 3.3 mEq/L (3.5-5.1); Protein, Total 8.1 g/dL (6.4-8.2); Sodium Level 138 mEq/L (136-145); Troponin High Sensitivity 3.9 pg/mL (<58.9)
[2024-07-23 16:36] LABS: Bilirubin Direct < 0.2 mg/dL (0-0.2); Bilirubin Indirect, Calculated 0.1 mg/dL (0.2-0.8)
--- NOTE | 2024-07-23 18:11 | EDPHYS ---
Physician Documentation [facility] Name: Fito Sosa Age: 38 yrs Sex: Female : 1985 Arrival Date: 07/23/2024 Time: 14:41 Bed 5 Private MD: ED Physician Caleb Lozoya HPI: 07/23 17:57 This 38 yrs old Female presents to ER via Ambulatory with complaints of Chest Pain. rt 17:57 Patient with reported history of enlarged heart, congestive heart failure presents to rt the ED with chest pain, weakness for about a week. Patient states that the symptoms have been intermittent. Denies any swelling, difficulty breathing. Denies other acute complaints at this time, symptoms are moderate in severity, no other aggravating or alleviating factors. Historical: - Allergies: 15:06 Amoxicillin; ap3 - PMHx: 15:06 Congestive heart failure; Hypertensive disorder; Hypothyroidism; thyroid CA; ap3 - Immunization history:: Client reports receiving the 2nd dose of the Covid vaccine. - Infectious Disease History:: Denies. - Social history:: Smoking status: Reported history of juuling and/or vaping. - Family history:: not pertinent. ROS: 17:57 Constitutional: Negative for fever, chills, and weight loss, Respiratory: Negative for rt shortness of breath, cough, wheezing, and pleuritic chest pain, Abdomen/GI: Negative for abdominal pain, nausea, vomiting, diarrhea, and constipation, MS/Extremity: Negative for injury and deformity, Skin: Negative for injury, rash, and discoloration, 17:57 Cardiovascular: Positive for chest pain, Negative for edema, 17:57 Neuro: Positive for weakness, Negative for loss of consciousness, Exam: 15:58 ECG was reviewed by the Attending Physician. rt 17:57 Constitutional: This is a well developed, well nourished patient who is awake, alert, rt and in no acute distress. Head/Face: Normocephalic, atraumatic. Chest/axilla: Normal chest wall appearance and motion. Nontender with no deformity. No lesions are appreciated. Cardiovascular: Regular rate and rhythm with a normal S1 and S2. No gallops, murmurs, or rubs. Normal PMI, no JVD. No pulse deficits. Respiratory: Lungs have equal breath sounds bilaterally, clear to auscultation and percussion. No rales, rhonchi or wheezes noted. No increased work of breathing, no retractions or nasal flaring. Abdomen/GI: Soft, non-tender, with normal bowel sounds. No distension or tympany. No guarding or rebound. No evidence of tenderness throughout. Skin: Warm, dry with normal turgor. Normal color with no rashes, no lesions, and no evidence of cellulitis. MS/ Extremity: Pulses equal, no cyanosis. Neurovascular intact. Full, normal range of motion. Neuro: Awake and alert, GCS 15, oriented to person, place, time, and situation. Cranial nerves II-XII grossly intact. Motor strength 5/5 in all extremities. Sensory grossly intact. Cerebellar exam normal. Normal gait. 17:57 ECG was reviewed by the Attending Physician. Vital Signs: 15:04 BP 138 / 108; Pulse 97; Resp 17; Temp 97.4; Pulse Ox 99% ; ap3 15:04 Weight 95.25 kg; Height 5 ft. 8 in. ; Pain 9/10; ap3 15:07 BP 133 / 96; ap3 17:20 BP 127 / 96; Pulse 68; Resp 15; Pulse Ox 98% on R/A; hb 18:08 BP 121 / 96; Pulse 66; Resp 15; Pulse Ox 99% on R/A; hb 15:04 Body Mass Index 31.93 (95.25 kg, 172.72 cm) ap3 15:04 Pain Scale: Adult ap3 MDM: 15:11 Medical Screening Exam initiated rt 17:51 Differential diagnosis: ACS, nonspecific chest pain, CAD, pneumonia. HEART Score: rt History: Moderately Suspicious (1), ECG: Non specific repolarization disturbance / LBTB / PM (1), Age: < or = 45 years (0), Risk Factors: 1 or 2 risk factors (1), Troponin: < or = 1 x Normal Limit (0), Total Score = 3. Data reviewed: vital signs, nurses notes, lab test result(s), EKG, radiologic studies. Consideration of Admission/Observation Escalation of care including admission/observation considered. Discussed admission versus outpatient management with the patient, patient elects to follow-up with her bathing suit maker in the clinic setting, will repeat troponin and plan to discharge if that remains okay.. I considered the following discharge prescriptions or medication management in the emergency department Medications were administered in the Emergency Department. See MAR. Independent interpretation of the following test(s) in the Emergency Department X-Ray: My interpretation is No edema seen on interpretation of x-ray images. Test considered but Not performed: CT: Low suspicion for PE, CT angiogram not indicated. Care significantly affected by the following chronic conditions: Hypertension. Response to treatment: the patient's symptoms have mildly improved after treatment. 07/23 15:10 Order name: Basic Metabolic Panel; Complete Time: 17:15 rt 07/23 15:10 Order name: CBC with Diff; Complete Time: 16:27 rt 07/23 15:10 Order name: LFT's; Complete Time: 17:15 rt 07/23 15:10 Order name: NT PRO-BNP; Complete Time: 17:15 rt 07/23 15:10 Order name: Troponin HS; Complete Time: 17:15 rt 07/23 17:28 Order name: Troponin High Sensitivity; Complete Time: 18:07 rt 07/23 15:10 Order name: XRAY Chest (1 view); Complete Time: 16:27 rt 07/23 17:28 Order name: EKG; Complete Time: 17:28 rt 07/23 15:10 Order name: Cardiac monitoring; Complete Time: 15:21 rt 07/23 15:10 Order name: EKG - Nurse/Tech; Complete Time: 16:13 rt 07/23 15:10 Order name: IV Saline Lock; Complete Time: 16:13 rt 07/23 15:10 Order name: Labs collected and sent; Complete Time: 16:13 rt 07/23 15:10 Order name: O2 Per Protocol; Complete Time: 15:21 rt 07/23 15:10 Order name: O2 Sat Monitoring; Complete Time: 15:21 rt 07/23 17:28 Order name: EKG - Nurse/Tech; Complete Time: 18:05 rt EC:58 Rate is 65 beats/min. Rhythm is regular, Normal Sinus Rhythm with No ectopy. QRS [place] rt is Normal. WA interval is normal. QRS interval is normal. QT interval is normal. No Q waves. No ST changes noted. Interpreted by me. 17:51 Rate is 71 beats/min. Rhythm is regular, Normal Sinus Rhythm with No ectopy. QRS [place] rt is Normal. WA interval is normal. QRS interval is normal. No Q waves. No ST changes noted. Interpreted by me. Administered Medications: 16:08 Drug: Nitroglycerin Sublingual 0.4 mg Sublingual once; every five minute if needed x3 hb Route: Sublingual; 17:04 Follow up: Response: No adverse reaction bp Disposition Summary: 07/23/24 18:10 Discharge Ordered Notes: Location: Home rt Problem: new rt Symptoms: have improved rt Condition: Stable rt Diagnosis - Chest pain, unspecified rt Followup: rt - With: Private Physician - When: 2 - 3 days - Reason: Discharge Instructions: - Discharge Summary Sheet rt - Nonspecific Chest Pain, Adult rt Forms: - Medication Reconciliation Form rt - Antibiotic Education rt - Prescription Opioid Use rt - Patient Portal Instructions rt - Leadership Thank You Letter rt Signatures: Dispatcher [employer] EDLinda Denton, PLANT ACCOUNTANT-C PLANT ACCOUNTANT-Kiersten Alanis, RN RN Rajni Cueto RN RN ap3 Caleb Lozoya MD MD rt Mikey Bourgeois RN bp
--- NOTE | 2024-07-23 18:11 | ER ---
Nurse's Notes [facility] Name: Fito Sosa Age: 38 yrs Sex: Female : 1985 Arrival Date: 07/23/2024 Time: 14:41 Bed 5 Private MD: Diagnosis: Chest pain, unspecified Presentation: 07/23 15:04 Chief complaint: Patient states: she is feeling weak and is in a lot of pain in her ap3 upper chest/neck. patient states this has been going on for approx one week. Coronavirus screen: At this time, the client does not indicate any symptoms associated with coronavirus-19. Ebola Screen: No symptoms or risks identified at this time. Initial Sepsis Screen: Does the patient meet any 2 criteria? No. Patient's initial sepsis screen is negative. Does the patient have a suspected source of infection? No. Patient's initial sepsis screen is negative. Risk Assessment: Do you want to hurt yourself or someone else? Patient reports no desire to harm self or others. Onset of symptoms is unknown. 15:04 Method Of Arrival: Ambulatory ap3 15:04 Acuity: RACHANA 2 ap3 Triage Assessment: 15:08 The onset of the patients symptoms was more than six hours ago. General: Appears in no ap3 apparent distress. Behavior is calm, cooperative, appropriate for age, Reports fatigue for. Pain: Complains of pain in chest and neck. Neuro: Level of Consciousness is awake, alert, obeys commands, Oriented to person, place, time, situation, Reports weakness. Cardiovascular: Patient's skin is warm and dry. Respiratory: Airway is patent Respiratory effort is even, unlabored, Respiratory pattern is regular, symmetrical. Historical: - Allergies: 15:06 Amoxicillin; ap3 - PMHx: 15:06 Congestive heart failure; Hypertensive disorder; Hypothyroidism; thyroid CA; ap3 - Immunization history:: Client reports receiving the 2nd dose of the Covid vaccine. - Infectious Disease History:: Denies. - Social history:: Smoking status: Reported history of juuling and/or vaping. - Family history:: not pertinent. Screenin:09 Abuse screen: Denies threats or abuse. Nutritional screening: No deficits noted. ap3 Tuberculosis screening: No symptoms or risk factors identified. 16:13 [facility] ED Fall Risk Assessment (Adult) History of falling in the last 3 months, hb including since admission No falls in past 3 months (0 pts) Confusion or Disorientation No (0 pts) Intoxicated or Sedated No (0 pts) Impaired Gait No (0 pts) Mobility Assist Device Used No (0 pt) Altered Elimination No (0 pt) Score/Fall Risk Level 0 - 2 = Low Risk Oriented to surroundings, Maintained a safe environment, Educated pt \T\ family on fall prevention, incl call for assistance when getting out of bed. Assessment: 16:13 General: Appears in no apparent distress. Behavior is calm, cooperative. Pain: Pain hb currently is 7 out of 10 on a pain scale. Neuro: Level of Consciousness is awake, alert, obeys commands, Oriented to person, place, time, situation. Cardiovascular: Reports chest pain, Patient's skin is warm and dry. Respiratory: Respiratory effort is even, unlabored, Respiratory pattern is regular, symmetrical. GI: No signs and/or symptoms were reported involving the gastrointestinal system. : No signs and/or symptoms were reported regarding the genitourinary system. EENT: No signs and/or symptoms were reported regarding the EENT system. Derm: Skin is pink, warm \T\ dry. Musculoskeletal: No signs and/or symptoms reported regarding the musculoskeletal system. 17:20 Reassessment: Patient appears in no apparent distress at this time. Patient and/or hb family updated on plan of care and expected duration. Pain level reassessed. Patient is alert, oriented x 3, equal unlabored respirations, skin warm/dry/pink. 18:08 Reassessment: Patient appears in no apparent distress at this time. Patient and/or hb family updated on plan of care and expected duration. Pain level reassessed. Patient is alert, oriented x 3, equal unlabored respirations, skin warm/dry/pink. Vital Signs: 15:04 BP 138 / 108; Pulse 97; Resp 17; Temp 97.4; Pulse Ox 99% ; ap3 15:04 Weight 95.25 kg; Height 5 ft. 8 in. ; Pain 9/10; ap3 15:07 BP 133 / 96; ap3 17:20 BP 127 / 96; Pulse 68; Resp 15; Pulse Ox 98% on R/A; hb 18:08 BP 121 / 96; Pulse 66; Resp 15; Pulse Ox 99% on R/A; hb 15:04 Body Mass Index 31.93 (95.25 kg, 172.72 cm) ap3 15:04 Pain Scale: Adult ap3 ED Course: 14:43 Patient arrived in ED. mg5 14:48 Caleb Lozoya MD is Attending Physician. rt 15:06 Triage completed. ap3 15:09 Arm band placed on right wrist. ap3 15:12 Mikey Bourgeois, RN is Primary Nurse. bp 16:04 Accessed peripheral vein via ultrasound, utilizing dynamic ultrasound technique using bp 20G Nexia IV catheter per hospital protocol. Clean \T\ dry. Dressing intact. Good blood return. Flushes easily. 16:12 XRAY Chest (1 view) In Process Unspecified. EDMS 16:13 Patient has correct armband on for positive identification. Bed in low position. Call hb light in reach. Side rails up X 1. Provided Education on: use of call light . 17:41 Troponin High Sensitivity Sent. hb 18:06 [facility]C [facility]. kb 18:19 No provider procedures requiring assistance completed. IV discontinued, intact, bp bleeding controlled, No redness/swelling at site. Pressure dressing applied. Administered Medications: 16:08 Drug: Nitroglycerin Sublingual 0.4 mg Sublingual once; every five minute if needed x3 hb Route: Sublingual; 17:04 Follow up: Response: No adverse reaction bp Medication: 16:13 VIS not applicable for this client. hb Outcome: 18:10 Discharge ordered by . rt 18:19 Discharged to home ambulatory, with family, bp 18:19 Condition: stable 18:19 Discharge instructions given to patient, Instructed on discharge instructions, follow up and referral plans. Demonstrated understanding of instructions, follow-up care, 18:19 Patient left the ED. bp Signatures: Dispatcher [employer] EDMS Linda Chacon FNP-C FNP-Ckb Baxter, Heather, RN RN hb Mikey Bourgeois, RN RN Rajni Randle RN RN ap3 Caleb Lozoya MD MD rt Trixie Aguayo mg5
[2024-07-23 21:09] VITALS: TEMP 97.4
[2024-07-23 21:14] VITALS: BP 121/96; O2SAT 99
--- NOTE | 2024-07-25 11:55 | EKG ---
Test Date: 2024-07-23 Test Time: 17:51:34 Software Engineer Advisor: HB MEASUREMENT RESULTS: Intervals: Rate: 71 RI: 198 QRSD: 92 QT: 484 QTc: 525 [place]: P: 64 RI: 198 QRS: 83 T: 112 INTERPRETIVE STATEMENTS: Normal sinus rhythm Low voltage QRS Nonspecific T wave abnormality Prolonged QT Abnormal ECG Compared to ECG 07/23/2024 15:58:58 Prolonged QT interval now present T-wave abnormality still present Electronically Signed On 07-25-24 11:52:00 CDT by Efrain Jules
--- NOTE | 2024-07-25 11:56 | EKG ---
Test Date: 2024-07-23 Test Time: 15:58:58 Switchboard Inspector: HB MEASUREMENT RESULTS: Intervals: Rate: 65 CA: 186 QRSD: 104 QT: 436 QTc: 453 [place]: P: 38 CA: 186 QRS: 59 T: 92 INTERPRETIVE STATEMENTS: Normal sinus rhythm Low voltage QRS Nonspecific T wave abnormality Abnormal ECG Compared to ECG 05/01/2022 14:06:43 T-wave abnormality now present Right-axis deviation no longer present Myocardial infarct finding no longer present Prolonged QT interval no longer present Electronically Signed On 07-25-24 11:52:41 CDT by Efrain Jules
== END 2024-07-23 18:19 | disposition home or self-care (01) ==
LOC: ER 14:41
DX: R07.9 Chest pain, unspecified (principal); I50.9 Heart failure, unspecified; I10 Essential (primary) hypertension
CPT/HCPCS: 36415; 71045; 80048; 80076; 83880; 84484; 85025; 93005; 99284